=== PATIENT | male | born 1950 | race African-American/Black ===

== ENCOUNTER 2018-07-26 11:54 | Inpatient (IN) | payer MEDICARE ==
[2018-07-26 14:00] LABS: CKMB 5.4 ng/mL (0-6.6)
--- NOTE | 2018-07-26 14:38 | PDOC.FPRHP ---
- History of Present Illness Chief Complaint: KHAN History of Present Illness: 68 yo male here for difficulty breathing starting this morning. Normal state of health prior to waking up this morning. Reports he got out of bed and began walking around the house when he noticed he was more short of breath than usual. Denies CP, N/V, diarrhea, numbness. Assoc weakness which resolved when he arrived at hospital in [place]. He is not aware of any symptoms going on before today. Had a similar episode about a year ago and was diagnosed with bronchitis. No new changes to diet, activity, medications recently. Hx significant for EtOH use, chronic about 16 beers a day. Last beer was this morning, no changes in beer consumption recently. In [place] ER patient was found to be in Afib with RVR and started on cardizem drip @ 5. Was also given ativan for DT withdrawal prophylaxis. No home medications. - Allergies/Adverse Reactions Allergies Allergy/AdvReac Type Severity Reaction Status Date / Time No Known Allergies Allergy Verified 07/26/18 18:08 - Home Medications Medication Instructions Recorded Confirmed Type No Known 07/26/18 07/26/18 History - History PMHx: none PSHx: none FHx: sister: diabetes and possibly HTN; no family history of heart disease reported Social:no smoking; aobut 16 beers a day; smoked crack for 27 years, quit 10 years ago - Review of Systems General: denies: fever/chills, weight/appetite/sleep changes ENT: denies: nasal congestion Respiratory: reports: shortness of breath, exercise intolerance. denies: cough Cardiovascular: denies: chest pain, palpitation Gastrointestinal: denies: nausea, vomiting Skin: denies: rashes Musculoskeletal: denies: tenderness, swelling Neurological: denies: numbness, syncope - Vital signs BP: 128 HR: 101 RR: 18 Tmax: 98.7 Pox: 99% on RA - Physical Exam Constitutional: NAD, awake, alert and oriented HEENT: normocephalic and atraumatic, EOMI Neck: supple, trachea midline Heart: normal S1/S2, no murmurs/rubs/gallops, no edema, other (irregularly irregular) Lungs: CTAB, no respiratory distress, no wheezing Abdomen: soft, bowel sounds present Musculoskeletal: normal structure Neurological: no focal deficit, normal sensation Skin: no rash/lesions Heme/Lymphatic: no unusual bruising or bleeding Psychiatric: normal mood and affect, good judgment and insight FMR H&P: Results - Labs Lab results: CK-MB (CK-2) 5.4 ng/mL (0-6.6) 07/26/18 12:55 Na: 134 K: 4.2 Cl: 100 Bicarb: 20 BUN: 14 Cr: 1.12 Glucose: 99 trop: 0.052 - EKG Interpretation EKG: atrial fibrillation with RVR with PVCs left axis deviation - Radiology Interpretation Chest x-ray Additional comment: mild cardiomegaly FMR H&P: A/P - Problem List (1) Atrial fibrillation with RVR Current Visit: Yes Status: Acute Code(s): I48.91 - UNSPECIFIED ATRIAL FIBRILLATION (2) Alcohol abuse Current Visit: Yes Status: Acute Code(s): F10.10 - ALCOHOL ABUSE, UNCOMPLICATED - Plan #New onset Afib with RVR -underlying cause EtOH abuse vs underlying heart etiology -Mg, Phos pending -TSH wnl -patient rate controlled at this time, 80s to 90s -wean down on cardizem drip as tolerated -hemodynamically stable at this time -consult Dr. Farmer, recs greatly appreciated -continue to trend troponins -repeat EKG now that he is not in RVR #alcohol abuse -ASE protocol #indeterminate troponins -continue to trend Disposition/LOS: Admit to tele, at least 2 midnights VTE prophylaxis: lovenox
[2018-07-26] MEDS ORDERED: Diltiazem 125 MG in Sodium Chloride 0.9% 100 ML IVPB SCH ×2 (14:45→18:00)
[2018-07-26 15:13] LABS: Magnesium 1.7 mg/dL (1.6-2.6); Phosphorus 3.5 mg/dL (2.3-4.7)
[2018-07-26] MEDS ORDERED: Diazepam 5 MG TAB PO PRN (15:39)
[2018-07-26] MEDS ORDERED: Thiamine HCl 200 MG/2 ML VIAL IM SCH (15:45)
[2018-07-26] MEDS ORDERED: Diazepam 5 MG TAB PO SCH (15:45)
[2018-07-26 18:12] VITALS: BMI 23.1
[2018-07-26] MEDS ORDERED: Acetaminophen 325 MG TAB PO PRN (18:25)
[2018-07-26] MEDS ORDERED: Ondansetron ODT 4 MG TAB SL PRN (18:25)
[2018-07-26] MEDS ORDERED: Ondansetron PF 4 MG/2 ML Vial IVP PRN (18:25)
[2018-07-26] MEDS: Sodium Chloride 0.9% 1,000 ML IV SCH (18:33)
--- NOTE | 2018-07-26 20:25 | CON ---
DATE OF CONSULTATION: 07/26/2018 CARDIOLOGY CONSULTATION REASON FOR CONSULTATION: Atrial fibrillation. HISTORY OF PRESENT ILLNESS: Mr. Anand is a pleasant 68-year-old gentleman, who comes to the hospital for not feeling well. He presented to the [facility] and he was found to have atrial fibrillation, so he was started on diltiazem drip and sent over to the [facility] in [place] for further care. He is currently rate controlled; however, he was also given Ativan for possible withdrawal symptoms. He currently denies any chest pain, tightness, or pressure. He drinks about 14 to 16 beers every day. He tells me he does not really have to. He is more tachycardic currently on my evaluation. He has not had any Ativan for several hours now. PAST MEDICAL HISTORY: None. PAST SURGICAL HISTORY: None. FAMILY HISTORY: Sister with diabetes and hypertension. No heart disease. SOCIAL HISTORY: No tobacco. No recent drugs. He used to smoke crack cocaine for about 27 years, but he quit 10 years ago. He drinks about 16 beers a day. REVIEW OF SYSTEMS: A 12-point review of systems was done and was found to be negative other than stated in the history of present illness PHYSICAL EXAMINATION: VITAL SIGNS: Temperature 98.3, pulse 112, respiratory rate 16, saturating 93% on room air, and blood pressure 116/86. GENERAL: Awake, alert, and oriented x3. No distress. HEENT: Normocephalic and atraumatic. NECK: Supple. LUNGS: Clear. CARDIOVASCULAR: S1 and S2. No S3 or S4. No murmurs or rubs. Tachycardic in the 110s. ABDOMEN: Soft, positive bowel sounds. EXTREMITIES: No edema. SKIN: Warm and dry. LABORATORY DATA: Laboratory work was reviewed. CBC is unremarkable. Coags were unremarkable. Chemistries were unremarkable except for an AST of 44, just slightly above normal. Normal potassium, mag, and phos. His troponin is 0.05, 0.05, 0.05. CK-MB was normal x2. TSH is normal. Albumin was 4.2. Toxicology was unremarkable as plasma alcohol was less than assay limit. DIAGNOSTIC DATA: EKG was reviewed. Atrial fibrillation with RVR in the 140s after the drip was started. Atrial fibrillation in the 70s. Currently, his telemetry seems to be either sinus tach or atrial flutter with 2:1 AV block with a heart rate in the 110s. Chest x-ray showed mild cardiomegaly with no evidence of acute cardiopulmonary issues. ASSESSMENT: 1. Atrial fibrillation with rapid ventricular response. 2. Possible atrial flutter. 3. Alcohol abuse. 4. Mildly elevated troponin, concern for left ventricular dysfunction. PLAN: 1. At this time, he is reasonably well rate controlled. We will repeat an EKG to make sure this is not sinus tach from withdrawal versus him organizing his rhythm into atrial flutter with 2:1 block. Depending on what the echocardiogram shows, we will decide on antiarrhythmic and probably BRADLY cardioversion in the next 2 to 3 days as long as he does not go into withdrawals. 2. Further recommendations per results of echocardiogram. Job ID: [id number]
[2018-07-26] MEDS ORDERED: Enoxaparin Sodium 40 MG/0.4 ML SYRINGE SC SCH (21:00)
[2018-07-26] MEDS: Metoprolol Tartrate 25 MG TAB PO SCH (21:07)
[2018-07-27] MEDS: Sodium Chloride 0.9% 1,000 ML IV SCH (01:25)
[2018-07-27] MEDS ORDERED: Diazepam 5 MG TAB PO PRN (04:00)
--- NOTE | 2018-07-27 05:53 | PDOC.FM ---
- Subjective Subjective: Patient was taken off the diltiazem drip @ ~ 20:00 yesterday. Has been rate controlled since. Denies any chest pain, SOB, palpitations, or lightheadedness on exam this AM. - Objective MAR Reviewed: Yes Vital Signs & Weight: Vital Signs (12 hours) Temp Pulse Resp BP BP Pulse Ox 07/27/18 04:00 98.6 F 58 L 18 121/78 97 07/26/18 21:00 56 L 16 132/85 07/26/18 20:00 95/59 L 07/26/18 19:39 97.5 F L 58 L 16 111/67 96 07/26/18 18:08 98.3 F 112 H 16 116/86 93 L Weight Weight 100.244 kg Result Diagrams: 07/27/18 06:06 07/27/18 06:06 Phys Exam - Physical Examination Constitutional: NAD HEENT: moist MMs, sclera anicteric Neck: supple, full ROM Respiratory: no wheezing, no rales, no rhonchi, clear to auscultation bilateral Cardiovascular: RRR, no significant murmur Gastrointestinal: no distention Musculoskeletal: no edema Neurological: non-focal, moves all 4 limbs Psychiatric: normal affect, A&O x 3 Skin: no rash, normal turgor Dx/Plan (1) Alcohol abuse Code(s): F10.10 - ALCOHOL ABUSE, UNCOMPLICATED Status: Acute (2) Atrial fibrillation with RVR Code(s): I48.91 - UNSPECIFIED ATRIAL FIBRILLATION Status: Acute - Plan Plan: New onset Afib with RVR - underlying cause EtOH abuse vs. cardiac etiology - Mg, Phos, and TSH WNLs. CBC pending. - Patient rate controlled in the 50s overnight on PO lopressor. Drip was d/c @ 20:00. In sinus rhythm on exam this AM. - Dr. Farmer on board with plans for a TTE today and likely a BRADLY tomorrow or the next day. alcohol abuse - Patient has been HD stable since admission. - ASE protocol in place but will consider initiating a benzo taper given his significant drinking history. indeterminate troponins - Trops downtrended. Likely 2/2 demand ischemia from arrhythmia. Addendum - Attending - Attending Attestation Date/Time: 07/27/182125 I personally evaluated the patient and discussed the management with Dr. Asher and Dr. Wang I agree with the History, Examination, Assessment and Plan documented above with any addition or exceptions noted below. 68 yo male admitted for new onset A. fib with RVR HD#1 Patient without acute events overnight. Denies CP, SOB, and palpitations. VS, labs, and imaging reviewed. 1. New onset A. fib: Now off CCB drip. Start oral beta norma. Converted back to NSR. Cards consulted. Started on anticoagulation. Awaiting results of ECHO to help determine CHADS score for anticoagulation vs antiplatelet. 2. Alcohol abuse: Discussed risk. Patient willing to stop. Will start benzo taper. Continue ASE protocol. Continue oral supplement replacement. Dispo: Continue tele monitoring. Prudencio
[2018-07-27 06:17] LABS: #Eosinphils 0.1 thou/uL (0.0-0.7); #Lymphocytes 1.3 thou/uL (1.20-3.40); #Monocytes 0.5 thou/uL (0.11-0.59); #Neutrophils 2.2 thou/uL (1.40-6.50); %Basophils 0.4 % (0.0-1.0); %Eosinophils 1.5 % (0.0-10.0); %Lymphocytes 31.6 % (21.0-51.0); %Monocytes 11.4 % (0.0-10.0); %Neutrophils 55.1 % (42.0-75.0); Hemoglobin 13.7 g/dL (14.0-18.0); Mean Corpuscular HGB CONC 33.7 g/dL (32.0-36.0); Mean Corpuscular Hemoglobin 32.1 pg (27.0-31.0); Mean Corpuscular Volume 95.3 fL (78.0-98.0); Mean Platelet Volume 7.7 fL (7.4-10.4); Platelet Count 174 thou/uL (130-400); RBC Distribution Width 12.1 % (11.5-14.5); Red Blood Cell (RBC) Count 4.27 mill/uL (4.70-6.10)
[2018-07-27 06:35] LABS: ALT (SGPT) 27 U/L (8-55); AST (SGOT) 38 U/L (5-34); Albumin 3.4 g/dL (3.4-4.8); Alkaline Phosphatase 64 U/L (40-150); Anion Gap 10 mmol/L (10-20); BUN (Urea Nitrogen) 11 mg/dL (8.4-25.7); Calc. Creatinine Clearance 93 mL/min (70-130); Calcium 8.6 mg/dL (7.8-10.44); Carbon Dioxide 28 mmol/L (23-31); Chloride 103 mmol/L (98-107); Estimated GFR-MDRD 80; Globulin 2.9 g/dL (2.4-3.5); Glucose 106 mg/dL (80-115); Potassium 4.2 mmol/L (3.5-5.1); Protein, Total 6.3 g/dL (5.8-8.1); Sodium 137 mmol/L (136-145)
[2018-07-27] MEDS: Magnesium Oxide 400 MG TAB PO SCH (08:05)
[2018-07-27] MEDS: Enoxaparin Sodium 100 MG/ML SYRINGE SC SCH ×2 (08:05→20:54)
[2018-07-27] MEDS: Folic Acid 1 MG TAB PO SCH (08:05)
[2018-07-27] MEDS: Multivitamin W/ Minerals 1 TAB PO SCH (08:05)
[2018-07-27] MEDS: Metoprolol Tartrate 25 MG TAB PO SCH ×2 (08:05→20:54)
[2018-07-27] MEDS ORDERED: Diazepam 5 MG TAB PO SCH (17:00)
--- NOTE | 2018-07-28 06:17 | PDOC.FM ---
- Subjective Subjective: NAEO. Patient remained in sinus rhythm overnight without any issues. Has no complaints on exam this morning. Denies any chest pain, SOB, or lightheadedness. - Objective MAR Reviewed: Yes Vital Signs & Weight: Vital Signs (12 hours) Temp Pulse Resp BP BP Pulse Ox 07/28/18 04:27 133/77 07/28/18 03:24 97.9 F 56 L 16 133/77 96 07/27/18 20:40 103/62 07/27/18 20:05 95 07/27/18 19:08 98.2 F 74 18 103/62 95 Weight Weight 100.879 kg I&O: 07/26/18 07/27/18 07/28/18 06:59 06:59 06:59 Intake Total 1515 720 Output Total 1700 600 Balance -185 120 Result Diagrams: 07/27/18 06:06 07/27/18 06:06 Radiology Reviewed by me: Yes (Echo --> EF of 55-60% w/ 2/3 diastolic dysfunction) Phys Exam - Physical Examination Constitutional: NAD HEENT: sclera anicteric Neck: supple, full ROM Respiratory: no wheezing, no rales, no rhonchi, clear to auscultation bilateral Cardiovascular: no significant murmur bradycardic with regular rhythm Musculoskeletal: no edema Neurological: non-focal, moves all 4 limbs Psychiatric: normal affect, A&O x 3 Skin: no rash, normal turgor Dx/Plan (1) Alcohol abuse Code(s): F10.10 - ALCOHOL ABUSE, UNCOMPLICATED Status: Acute (2) Atrial fibrillation with RVR Code(s): I48.91 - UNSPECIFIED ATRIAL FIBRILLATION Status: Acute - Plan Plan: New onset Afib with RVR - underlying cause EtOH abuse vs. cardiac etiology - Mg slightly low but Phos and TSH WNLs yesterday. s/p PO Mg replacement. - Patient rate controlled in the 50s overnight on PO lopressor. In sinus rhythm again on exam this AM. - Dr. Farmer on board with plans for an outpatient stress test. Recommended continuing PO lopressor and 81mg ASA QD for rate control and CVA prevention since patient has a ho heavy EtOH use. Instructed patient to schedule outpatient follow-up with him after the holidays. alcohol abuse - Patient has been HD stable since admission. - ASE protocol in place as well as CAROLE valium HS. - Will encourage cessation. Normocytic anemia - Aware, will continue multivitamin, B12, and folic acid. indeterminate troponins - Trops downtrended. Likely 2/2 demand ischemia from arrhythmia. Dispo: D/c home today w/ instructions to follow-up with cardiology for an outpatient stress test. Addendum - Attending - Attending Attestation Date/Time: 07/28/182131 I personally evaluated the patient and discussed the management with Dr. Asher and Dr. Wang I agree with the History, Examination, Assessment and Plan documented above with any addition or exceptions noted below. 68 yo male admitted for new onset A. fib with RVR HD#2 Patient without acute events overnight. Denies CP, SOB, and palpitations. VS, labs, and imaging reviewed. 1. New onset A. fib: Controlled on oral beta norma. Converted back to NSR on CCB drip. Cards following. Appears to have CHADs score of 2. Cards recommended ASA therapy only due to alcohol use and risk for bleed with anticoagulants. Plan for outpatient stress. 2. Alcohol abuse: Discussed risk. Patient willing to stop. Continue benzo taper. Asymptomatic. Continue oral supplement replacement. Dispo: Ok t d/c to home. Follow up with cards next week along with PCP. Encouraged counseling and AA support for alcohol cessation. Prudencio
[2018-07-28] MEDS: Enoxaparin Sodium 100 MG/ML SYRINGE SC SCH (08:31)
[2018-07-28] MEDS: Folic Acid 1 MG TAB PO SCH (08:31)
[2018-07-28] MEDS: Metoprolol Tartrate 25 MG TAB PO SCH (08:32)
[2018-07-28] MEDS: Magnesium Oxide 400 MG TAB PO SCH (08:32)
[2018-07-28] MEDS: Multivitamin W/ Minerals 1 TAB PO SCH (08:33)
--- NOTE | 2018-07-28 08:33 | PDOC.CTH ---
Cardiology Progress Note - Subjective He is back in sinus rhythm feeling well. He denies any chest pain, tightness, pressure, SOB. - Objective Vital Signs Temp Pulse Resp BP BP Pulse Ox 07/28/18 07:25 98.1 F 63 18 133/86 97 07/28/18 04:27 133/77 07/28/18 03:24 97.9 F 56 L 16 133/77 96 07/27/18 20:40 103/62 Weight 222 lb 6.4 oz 07/27/18 07/28/18 07/29/18 06:59 06:59 06:59 Intake Total 1515 720 Output Total 1700 600 Balance -185 120 - Physical Examination General/Neuro: alert & oriented x3, NAD Neck: no JVD present Lungs: CTA, unlabored respirations Heart: RRR Abdomen: NT/ND Extremities: other: (no edema) - Telemetry Telemetry Rhythm: NSR - Labs Result Diagrams: 07/27/18 06:06 07/27/18 06:06 Troponin/CKMB CK-MB (CK-2) 5.4 ng/mL (0-6.6) 07/26/18 12:55 Troponin I 0.050 ng/mL (< 0.028) H 07/26/18 16:08 - Assessment/Plan 1. Paroxysmal afib 2. Alcohol abuse PLAN: - May discharge home - Will plan on risk stratification with a stress test as an outpatient. - He is 6'10" so if intervention planned he will likely need special longer catheters to be available. - Aspirin alone for stroke prophylaxis due to alcohol use - Counselled on cessation if he follows up and has not used alcohol may consider full anticoagulation. - May discharge home today from cardiac perspective. - Follow up in 1 month in the office. - Will sing off.
[2018-07-28 11:16] VITALS: BP 109/68; TEMP 98.4
--- NOTE | 2018-07-30 17:07 | DIS ---
DATE OF ADMISSION: 07/26/2018 DATE OF DISCHARGE: 07/28/2018 RESIDENT: Agata Asher MD ADMITTING ATTENDING: Rubén Mo MD DISCHARGE ATTENDING: Venessa Haji MD CONSULTS: Cardiology, Dr. David Farmer. PROCEDURES: Transthoracic echocardiogram on 07/27/2018, significant for an ejection fraction estimated at 55% to 60% with grade 2/3 diastolic dysfunction and apical akinesis as well as mildly dilated left atrium, and mild mitral and tricuspid regurgitation. PRIMARY DIAGNOSES: 1. Paroxysmal atrial fibrillation with rapid ventricular rate. 2. Normocytic anemia. 3. Elevated troponin secondary to atrial fibrillation with rapid ventricular rate. 4. Hypomagnesemia. SECONDARY DIAGNOSIS: Chronic alcohol abuse. DISCHARGE MEDICATIONS: 1. Aspirin 81 mg daily. 2. Folic acid 1 mg p.o. daily. 3. Lopressor 12.5 mg p.o. b.i.d. 4. Multivitamin with minerals one tablet p.o. daily. 5. Atorvastatin 20 mg p.o. daily. 6. Lisinopril 5 mg p.o. daily. 7. Valium 2 mg p.o. daily p.r.n. for 4 days. DISCONTINUED MEDICATIONS: None. HOSPITAL COURSE: The patient is a 68-year-old gentleman with a past medical history significant for chronic alcohol abuse, who presented to the emergency department with a chief complaint of difficulty breathing that started the morning of presentation. Upon presentation to the [facility] he was found to be in atrial fibrillation with RVR. At the [facility], the patient was started on a Cardizem drip at 5 an hour and was given IV lovenox for DVT prophylaxis. After being started on the Cardizem drip, the patient was transferred to [facility] for close observation on telemetry. After the patient admitted to the Telemetry floor, Cardiology, Dr. David Farmer was consulted to come and evaluate the patient. At the time of Dr. Farmer's evaluation, the patient was still in atrial fibrillation with RVR and his heart rate was noted to be elevated at 112. Dr. Farmer therefore recommended that the patient be titrated off the Cardizem drip as tolerated and that he undergo a transthoracic echo and possibly a BRADLY for cardioversion in the next 2 to 3 days. Fortunately, by 7 p.m. on the day of admission, the patient converted to normal sinus rhythm and was taken off the Cardizem drip and started on p.o. Lopressor 25 mg b.i.d. The following morning, the patient underwent a transthoracic echocardiogram, which was significant for the findings described above. He was continued on p.o. lopressor at a reduced dose of 12.5 mg p.o. b.i.d. as he actually became bradycardic with a heart rate down into the 50s overnight. On the morning of discharge, Dr. Farmer came and evaluated the patient and recommended proceeding with a cardiac stress test on an outpatient basis due to the patient's tall stature. Dr. Farmer said he would need special catheters in order to complete a cardiac cath on the patient and therefore recommended follow-up testing on an outpatient basis. The patient agreed to this and was therefore cleared to be discharge home on lopressor and aspirin for his paroxysmal atrial fibrillation per the recs of Dr. Farmer due to his h/o significant QD EtOH use. Regarding the patient's elevated troponin, his initial troponin on presentation was slightly elevated 0.050; however, this downtrended from 0.050 and was therefore likely related to his rapid ventricular response following atrial fibrillation. Regarding the patient's hypomagnesemia, the patient's initial magnesium on admission was 1.7, which was replaced with 2 g of IV mag and the morning of discharge, it had risen to within normal limits at 2.1. DISPOSITION: Stable. DISCHARGE INSTRUCTIONS: 1. Location: Home. 2. Diet: Heart-healthy diet. 3. Activity: As tolerated. No restrictions. 4. Followup: The patient was instructed to follow up with [facility] in [place], as this is close to the patient's home, within 2 weeks of discharge. The patient was also instructed to follow up with Dr. Farmer on an outpatient basis within 2 weeks to complete the workup for his new onset atrial fibrillation with a cardiac stress test and possible cardiac catheterization. Job ID: [id number] [id number]
== END 2018-07-28 14:01 | disposition home or self-care (01) | DRG 309 ==
LOC: ERS 11:54 → ERHOLD 13:58 → 2NO 17:51
PROVIDERS: ADMIT Family Medicine; ATTEND Family Medicine
DX: I48.0 Paroxysmal atrial fibrillation (principal); I24.8 Other forms of acute ischemic heart disease; F10.10 Alcohol abuse, uncomplicated; D64.9 Anemia, unspecified; E83.42 Hypomagnesemia
CPT/HCPCS: 36415; 80053; 80061; 82274; 82553; 83735; 84100; 84443; 85025; 93005; 93010; 93306; 96365; 96366; J1650; J3411; J3475; J7050

== ENCOUNTER 2019-04-03 17:17 | Inpatient (IN) | payer MEDICARE, SELFPAY ==
[2019-04-03] MEDS ORDERED: NS 0.9% w/ 40 MEQ KCL 1,000 ML IV SCH (18:00)
[2019-04-03] MEDS ORDERED: Ketorolac Tromethamine 30 MG/ML VIAL ONE (18:07)
[2019-04-03 19:23] LABS: Troponin I 0.024 ng/mL (< 0.028)
[2019-04-03 20:20] VITALS: BMI 23.5
[2019-04-03 21:15] LABS: Troponin I 0.022 ng/mL (< 0.028)
[2019-04-04 00:18] LABS: Troponin I 0.027 ng/mL (< 0.028)
[2019-04-04] MEDS ORDERED: Acetaminophen 325 MG TAB PO PRN (00:19)
[2019-04-04] MEDS ORDERED: Senokot S 8.6-50 MG TAB PO PRN (00:19)
[2019-04-04] MEDS ORDERED: Ondansetron PF 4 MG/2 ML Vial IVP PRN (00:19)
[2019-04-04] MEDS ORDERED: Ondansetron ODT 4 MG TAB PO PRN (00:19)
[2019-04-04] MEDS ORDERED: Guaifenesin DM 100-10/5 ML UDCUP PO PRN (00:19)
[2019-04-04] MEDS ORDERED: Calcium Carbonate 500 MG ChewTAB PO PRN (00:19)
[2019-04-04] MEDS ORDERED: HYDROcodone/Acetaminophen 5/325 mg Tablet PO PRN (00:19)
[2019-04-04] MEDS ORDERED: Zolpidem Tartrate 5 MG TAB PO PRN (00:19)
[2019-04-04] MEDS ORDERED: Bisacodyl 10 MG SUPP PR PRN (00:19)
[2019-04-04] MEDS ORDERED: Loperamide HCl 2 MG CAP PO PRN (00:19)
--- NOTE | 2019-04-04 04:00 | HP ---
PRIMARY CARE PHYSICIAN: [facility]. REASON FOR ADMISSION: Transferred from [facility] for atrial fibrillation with RVR. HISTORY OF PRESENT ILLNESS: This is a 69-year-old male, who has history of atrial fibrillation, who initially went to [facility] with complaint of palpitation, dizziness, generalized weakness and mild shortness of breath. The patient was found with atrial fibrillation with rapid ventricular response. The patient had similar problem in July 2018. At that time, he was admitted in our hospital. An echocardiography and Cardiology evaluation were done. At that time, the patient's atrial fibrillation was related with his history of alcohol abuse. Subsequently, he stopped drinking alcohol and then he restarted drinking alcohol about 2 days ago. The patient also relates at this time atrial fibrillation with his alcohol use. Initial heart rate was in 150s. He was requiring Cardizem drip and subsequently he was transferred to our hospital. The patient also reports that he also ran out his medication for last 4-5 days. The patient was also not able to get a followup appointment with primary care physician. He did not have any syncope. He denies any orthopnea, PND, or leg swelling. He denies any fever or chills. He denies any UTI symptoms. He denies any chest pain. He denies any melena or hematochezia. He denies any previous history of diabetes or stroke. REVIEW OF SYSTEMS: CONSTITUTIONAL: Negative for weight loss or gain, ability to conduct usual activities. SKIN: Negative for rash, itching. EYES: Negative for double vision, pain. ENT/MOUTH: Negative for nose bleeding, neck stiffness, pain, tenderness. CARDIOVASCULAR: Negative for palpitations, dyspnea on exertion, orthopnea. RESPIRATORY: Negative for shortness of breath, wheezing, cough, hemoptysis, fever or night sweats. GASTROINTESTINAL: Negative for poor appetite, abdominal pain, heartburn, nausea, vomiting, constipation, or diarrhea. GENITOURINARY: Negative for urgency, frequency, dysuria, nocturia. MUSCULOSKELETAL: Negative for pain, swelling. NEUROLOGIC/PSYCHIATRIC: Negative for anxiety, depression. ALLERGY/IMMUNOLOGIC: Negative for skin rash, bleeding tendency. Please see my HPI for pertinent positives and negatives. All other review of systems reviewed and negative except as mentioned in HPI. PAST MEDICAL HISTORY: Paroxysmal atrial fibrillation, hypertension, dyslipidemia, and history of alcohol abuse. PAST SURGICAL HISTORY: Reviewed and negative. PAST PSYCHIATRIC HISTORY: Reviewed and negative. SOCIAL HISTORY: The patient is former drug abuser. He drinks alcohol socially. He denies any smoking history. FAMILY HISTORY: No strong family history of premature coronary artery disease, stroke, or cancer. ALLERGIES: NO KNOWN DRUG ALLERGY. CURRENT HOME MEDICATIONS: 1. Aspirin 81 mg daily. 2. Lipitor 20 mg daily. 3. Lisinopril 5 mg p.o. daily. 4. Metoprolol 12.5 mg twice daily. 5. Multivitamin 1 tablet daily. 6. Flexeril 5 mg t.i.d. p.r.n. EMERGENCY ROOM COURSE: The patient was treated with IV fluid, Lovenox 1 mg/kg, Cardizem drip, potassium chloride 20 mEq IV, potassium chloride 40 mEq p.o., aspirin 243 mg and he required Cardizem bolus x2 10 mg. PHYSICAL EXAMINATION: VITAL SIGNS: On arrival to [facility], blood pressure 136/116, pulse 158, irregular, respiratory rate 17, saturation 100% on room air, weight 101.6 kg. GENERAL: When I saw, at that time, he was converted to sinus rhythm. He is alert and oriented, asymptomatic. HEENT: Head; normocephalic, atraumatic. Eyes; pupils round and reactive to light. Extraocular muscle intact. ENT; oropharynx within normal limits. Moist mucous membranes. No oral lesion. No pharyngeal erythema. No exudate. NECK: Supple. No JVD. No thyromegaly. No carotid bruit. No jugular venous distention. LUNGS: Clear to auscultation without any rhonchi or rales. CARDIAC: Currently S1, S2 regular. No murmur. No gallop. No rub. ABDOMEN: Soft. Bowel sounds present. Nontender. Nondistended. No organomegaly. No mass. No suprapubic tenderness. BACK: Examination unremarkable. No CVA tenderness. EXTREMITIES: Upper extremities; passive movement of all joints are normal. Lower extremities; no edema. No calf tenderness. Good distal pulsation. SKIN: No skin rash. HEMATOLOGICAL: No lymphadenopathy. NEUROLOGIC: Nonfocal examination. SIGNIFICANT LABORATORY DATA: EKG done at [facility] was consistent with atrial fibrillation with rapid ventricular response, multifocal premature ventricular complexes, left axis deviation. The second EKG was also consistent with atrial fibrillation with controlled ventricular response with multiple PVCs. Echocardiography in July 2018 showed EF 55% to 60%, diastolic dysfunction. Chest x-ray based on my review, no acute cardiopulmonary process. CBC; WBC 6.6, hemoglobin 13.3, platelet count 214. INR 1.1. BMP; sodium 142, potassium 2.9, chloride 99, carbon dioxide 28, BUN 11, creatinine 1.63, glucose 118. Lactic acid 1.4, magnesium 2.1, calcium 10.0. LFTs; AST 31, ALT 222, alkaline phosphatase 98, albumin 4.3. CK 370, CK-MB 5.7, troponin I 0.033, then 0.024 and 0.022. TSH 1.99. Urinalysis unremarkable. Urine drug screen negative. ASSESSMENT AND PLAN: 1. Paroxysmal atrial fibrillation with rapid ventricular response. 2. Hypertension. 3. Dyslipidemia. 4. Alcohol abuse. 5. Hypokalemia. 6. Chronic kidney disease, stage 3. 7. Mild rhabdomyolysis. 8. Type 2 myocardial infarction. Plan, Cardizem drip will be interrupted as patient has converted to normal sinus rhythm. The patient already had full workup done in the recent past including echocardiography. No need of repeating echocardiography. He has diastolic dysfunction. Currently, the patient is converted to sinus rhythm and this episode is related with his alcohol use as well as medication noncompliance. Based on [id number] score, he has only 1 point. He does not have any congestive heart failure history. The patient is also noncompliant. He will benefit from aspirin 325 mg p.o. daily. We will resume the patient's home medication. We will monitor while in the hospital for any recurrent episodes of atrial fibrillation. We will continue Lovenox 1 mg/kg subcutaneous twice daily. Long-term anticoagulation, we will defer to Cardiology if needed. 9. Dyslipidemia, continue Lipitor 20 mg p.o. daily. 10. Hypertension. Continue lisinopril 5 mg p.o. daily, metoprolol 12.5 mg p.o. b.i.d. 11. Alcohol abuse. Continue multivitamin one tablet p.o. daily. Counseling given. 12. Deep venous thrombosis prophylaxis, the patient is already on full dose of Lovenox therapy. 13. Gastrointestinal prophylaxis, Pepcid 20 mg p.o. b.i.d. CODE STATUS: The patient is full code. DISPOSITION PLAN: Based on clinical course, we are expecting the patient's stay in hospital more than 2 midnights. Plan of care discussed with the patient in detail. Job ID: [id number]
[2019-04-04 05:10] LABS: #Basophils 0.1 thou/uL (0.0-0.2); #Eosinphils 0.1 thou/uL (0.0-0.7); #Lymphocytes 2.2 thou/uL (1.20-3.40); #Monocytes 0.6 thou/uL (0.11-0.59); #Neutrophils 2.7 thou/uL (1.40-6.50); %Eosinophils 1.6 % (0.0-10.0); %Lymphocytes 38.2 % (21.0-51.0); %Monocytes 10.3 % (0.0-10.0); %Neutrophils 48.8 % (42.0-75.0); Mean Corpuscular HGB CONC 34.7 g/dL (32.0-36.0); Mean Corpuscular Hemoglobin 31.4 pg (27.0-31.0); Mean Corpuscular Volume 90.5 fL (78.0-98.0); Mean Platelet Volume 8.3 fL (7.4-10.4); Platelet Count 170 thou/uL (130-400); RBC Distribution Width 12.6 % (11.5-14.5); Red Blood Cell (RBC) Count 3.49 mill/uL (4.70-6.10); White Blood Cell (WBC) Count 5.6 thou/uL (4.8-10.8)
[2019-04-04 05:29] LABS: ALT (SGPT) 15 U/L (8-55); AST (SGOT) 20 U/L (5-34); Albumin 3.4 g/dL (3.4-4.8); Alkaline Phosphatase 73 U/L (40-150); Anion Gap 7 mmol/L (10-20); BUN (Urea Nitrogen) 9 mg/dL (8.4-25.7); Bilirubin, Total 0.6 mg/dL (0.2-1.2); Calc. Creatinine Clearance 101 mL/min (70-130); Calcium 8.4 mg/dL (7.8-10.44); Carbon Dioxide 29 mmol/L (23-31); Chloride 107 mmol/L (98-107); Estimated GFR-MDRD 88; Globulin 2.5 g/dL (2.4-3.5); Glucose 109 mg/dL (80-115); Potassium 3.3 mmol/L (3.5-5.1); Protein, Total 5.9 g/dL (5.8-8.1); Sodium 140 mmol/L (136-145)
[2019-04-04] MEDS ORDERED: Metoprolol Tartrate 25 MG TAB PO SCH (09:00)
[2019-04-04] MEDS ORDERED: Multivitamin W/ Minerals 1 TAB PO SCH (09:00)
[2019-04-04] MEDS ORDERED: Aspirin 81 mg Enteric Coated Tablet PO SCH (09:00)
[2019-04-04] MEDS ORDERED: Heparin 5,000 UNITS/ML VIAL SC SCH (09:00)
[2019-04-04] MEDS ORDERED: Famotidine 20 MG TAB PO SCH (09:00)
[2019-04-04] MEDS ORDERED: Atorvastatin Calcium 20 MG TAB PO SCH (09:00)
[2019-04-04] MEDS ORDERED: Enoxaparin Sodium 100 MG/ML SYRINGE SC SCH (09:00)
[2019-04-04] MEDS ORDERED: Aspirin 325 MG TAB PO SCH (09:00)
[2019-04-04] MEDS ORDERED: Lisinopril 5 MG TAB PO SCH (09:00)
[2019-04-04] MEDS ORDERED: Potassium Chloride 20 MEQ TAB PO SCH (15:30)
[2019-04-04 15:46] VITALS: BP 151/85; TEMP 98
--- NOTE | 2019-04-04 16:13 | CON ---
DATE OF CONSULTATION: 04/04/2019 REASON FOR CONSULTATION: Atrial fibrillation with RVR. HISTORY OF PRESENT ILLNESS: Mr. Anand is a pleasant 69-year-old -[place] gentleman, whom I have seen in the past, who comes to the hospital for palpitations. He was seen in July for similar situation. He was in atrial fibrillation with RVR. At that time, he was drinking about 12 to 14 beers every day. He was advised to stop drinking. His CHADS-VASc score was 2, so he needed blood thinning, but we decided against it because of his alcohol use and his noncompliance. He was discharged home on a beta norma and an WINIFRED inhibitor and an aspirin alone. He states that since then, he has not drank at all, and it was not up to last week, where he had a total of 3 beers, he says, and he also started to run out of his medications, and because he had not followed up with anyone since then and his pharmacist told him not to get a refill, he needed to get a physician to sign off on it and he had no primary care physician, they had not come and see us. He eventually went back into atrial fibrillation, started feeling palpitations, went to the ER, was found to be in atrial fibrillation with RVR, and eventually was transferred here. He was placed on a Cardizem drip and he converted to sinus rhythm overnight. Currently, he feels back to normal. Denies any chest pain, tightness, or pressure. No shortness of breath. PAST MEDICAL HISTORY: 1. Paroxysmal atrial fibrillation. 2. Alcohol abuse. He states he quit for the last 6 months. He has had a total of 3 beers since we last saw him. 3. Hypertension. 4. Hyperlipidemia. PAST SURGICAL HISTORY: None. SOCIAL HISTORY: Former drug user. Social alcohol use, heavy before 14 beers a day. He states he has only had 3 beers in the last 6 months. No tobacco use. FAMILY HISTORY: Noncontributory. OUTPATIENT MEDICATIONS: 1. Aspirin 81 a day. 2. Lipitor 10 mg at bedtime. 3. Lisinopril 5 mg a day. 4. Metoprolol 12.5 mg b.i.d. 5. Multivitamin daily. 6. Flexeril p.r.n. ALLERGIES: NO KNOWN DRUG ALLERGIES. REVIEW OF SYSTEMS: A 12-point review of systems was done and was all negative unless stated in the history of present illness. PHYSICAL EXAMINATION: VITAL SIGNS: Temperature 97.8, pulse 48, respiratory rate 15, saturating 100% on room air, and blood pressure 167/85. GENERAL: Awake, alert, oriented x3. No distress. HEENT: Normocephalic and atraumatic. NECK: Supple. LUNGS: Clear. CARDIOVASCULAR: S1 and S2. No S3 or S4. Heart rate in the 40s. ABDOMEN: Soft. Positive bowel sounds. EXTREMITIES: No edema. SKIN: Warm and dry. LABORATORY DATA: Laboratory work was reviewed. CBC was reviewed. Chemistries were reviewed. Potassium was 3.3, actually 2.9 on admission, up to 3.3. Troponin was negative x3. ASSESSMENT AND PLAN: 1. Paroxysmal atrial fibrillation with rapid ventricular response, currently in sinus rhythm. 2. Hypokalemia. 3. Hypertension. 4. Alcohol use. 5. Noncompliance. PLAN: 1. His CHADS-VASc score is 2 for his age and hypertension. He is not a good candidate for full anticoagulation given his noncompliance. We will plan on restarting his home medications. We will plan on seeing him back in the office in 1 to 2 months. If he shows up, we will consider blood thinners at that time for stroke prophylaxis. If he does not show up with me, he is still not interested in compliance at this time. I have encouraged him to continue to follow up and I explained to him the risk of not being on a blood thinner increases the risk of him having a stroke, which could be severely disabling. He understands, verbalized understanding of this. He will try to follow up with us. Once he does, we will start full anticoagulation. Otherwise, aspirin alone for stroke prophylaxis for now. 2. If he continues to drink, he would not be a candidate for full anticoagulation either, so this has been voiced to him, and he verbalized understanding of this as well. 3. Would discontinue metoprolol, increase his lisinopril to 10 mg a day to control his blood pressure better. 4. May be discharged home at any point from the cardiac perspective. Thank you for letting us to participate in the care of your patient. We will sign off. Please call with any questions. Job ID: [id number]
[2019-04-05] MEDS ORDERED: Lisinopril 5 MG TAB PO SCH (09:00)
--- NOTE | 2019-04-05 09:52 | DIS ---
DATE OF ADMISSION: 04/03/2019 DATE OF DISCHARGE: 04/04/2019 DISCHARGE DISPOSITION: Home. FOLLOWUP: 1. Follow up at [facility] in [place]. 2. Follow up with Cardiology, Dr. Farmer in 2 weeks. The patient was seen and examined on the day of discharge. Denies any new complaints. No chest pain, shortness of breath, or palpitations reported. DISCHARGE MEDICATIONS: 1. Lisinopril 10 mg daily. 2. Metoprolol 12.5 b.i.d. 3. Multivitamin 1 tablet daily. 4. Lipitor 20 mg daily. 5. Aspirin 81 mg daily. INPATIENT REHABILITATION CONSTRUCTION SPECIALIST: Cardiology, Dr. Farmer. BRIEF HOSPITAL COURSE: The patient is a 69-year-old male with paroxysmal atrial fibrillation, presented to the hospital with palpitations. His workup was consistent with atrial fibrillation with rapid ventricular response. The patient spontaneously converted to sinus rhythm after IV Cardizem. He was monitored on telemetry. The patient was evaluated by Cardiology, Dr. Farmer. Dr. Farmer recommended increasing lisinopril. Due to sinus bradycardia, metoprolol dose was left unchanged. He was encouraged to follow up as outpatient. Due to medication noncompliance, anticoagulation was not started by Cardiology. He will continue aspirin for stroke prophylaxis for now. Dr. Farmer will consider anticoagulation if he shows compliance with followup. He has been cleared by Cardiology for discharge. FINAL DIAGNOSIS: 1. Paroxysmal atrial fibrillation with rapid ventricular response, currently in sinus rhythm. 2. Hypokalemia, replaced. 3. Hypertension. 4. History of alcoholism. 5. Noncompliance. 6. Mild chronic anemia. PLAN: Plan of care was discussed with the patient in detail, he stated understanding. Job ID: [id number]
--- NOTE | 2019-04-06 20:05 | PQF ---
FRANCISCO SHEFFIELD ALEM KISHA DOUGHERTY MD [id number] CLINICAL DOCUMENTATION CLARIFICATION FORM: POST DISCHARGE Addendum to original discharge summary date: ____ Late entry note date: __ DATE: 04/04/19 ATTN: Kisha Palafox Please exercise your independent, professional judgment in responding to the clarification form. Clinical indicators are provided on the bottom of this form for your review Can you please further specify if Type 2 myocardial is ruled in or ruled out? Type 2 myocardial [ ] Ruled in diagnosis [ ] Continue to treat [ ] Resolved [ ] Ruled out diagnosis [ ] Cannot rule out diagnosis [ ] Other diagnosis please specity [ ] Unable to determine In addition, please specify: Present on Admission (POA): [ ] Yes [ ] No [ ] Unable to determine For continuity of documentation, please document condition throughout progress notes and discharge summary. Thank You. CLINICAL INDICATORS H and P 04/03 pg.1- "Complaint of palpitation, dizziness, generalized weakness and mild shortness of breath" H and P 04/03 pg.3- "Troponin I 0.033, then 0.024 and 0.022" H and P 04/03 pg.3- "Type 2 Myocardial infection. Plan Cardizem drip will interrupted as patient has converted to normal sinus RISK FACTORS Paroxysmal atrial fibrillation-H and P 04/03 pg.3 Dyslipidemia-H and P 04/03 pg.3 Hypertension- H and P 04/03 pg.3 Medication noncompliance- H and P 04/03 pg.4 TREATMENTS Cardiology Consult- Dr. Farmer 04/04 IV Fluids- OCT 13 Diltiazem HCl (Cardizem 125mg IV- OCT 13 To support diagnosis (This form is maintained as a part of the permanent medical record) 2014 [employer]. All Rights Reserved Larry [email or web address] [not provided] [email or web address]
== END 2019-04-04 19:00 | disposition home or self-care (01) | DRG 309 ==
LOC: ERS 17:17 → 2NO 20:04
PROVIDERS: ADMIT Internal Medicine; ATTEND Internal Medicine
DX: I48.0 Paroxysmal atrial fibrillation (principal); M62.82 Rhabdomyolysis; E87.6 Hypokalemia; N18.3 Chronic kidney disease, stage 3 (moderate); I12.9 Hypertensive chronic kidney disease with stage 1 through stage 4 chronic kidney disease, or unspecified chronic kidney disease; D63.1 Anemia in chronic kidney disease; F10.21 Alcohol dependence, in remission; E78.5 Hyperlipidemia, unspecified; Z79.82 Long term (current) use of aspirin; Z79.899 Other long term (current) drug therapy; Z91.14 Patient's other noncompliance with medication regimen
CPT/HCPCS: 36415; 80053; 83735; 85025; 93005; 96365; 96366; J1650; J1885; J3480; J3490

== ENCOUNTER 2023-09-06 17:29 | Inpatient (IN) | payer MEDICARE, SELFPAY ==
[2023-09-06] MEDS ORDERED: Ondansetron PF 4 MG/2 ML Vial IVP PRN (18:23)
[2023-09-06] MEDS ORDERED: Ondansetron ODT 4 MG TAB PO PRN ×2 (18:23→18:30)
[2023-09-06] MEDS ORDERED: Acetaminophen 650 MG Suppository PR PRN (18:23)
[2023-09-06] MEDS ORDERED: Metoprolol Tartrate 5 MG (5 mL) VIAL IVP SCH (18:30)
[2023-09-06] MEDS ORDERED: Lorazepam 2 MG/ML VIAL IM PRN (18:30)
[2023-09-06] MEDS ORDERED: Electrolyte Replacement Protocol 1 EACH FS SCH (18:30)
[2023-09-06] MEDS ORDERED: dilTIAZem 125 MG in Sodium Chloride 0.9% 100 ML IVPB SCH (18:30)
[2023-09-06] MEDS ORDERED: Lorazepam 1 MG TAB PO PRN (18:30)
[2023-09-06 18:53] LABS: Hemoglobin 14.3 g/dL (14.0-18.0); Platelet Count 197 10x3/uL (130-400)
[2023-09-06 19:21] LABS: Magnesium 1.7 mg/dL (1.6-2.6); Phosphorus 3.3 mg/dL (2.3-4.7)
[2023-09-06 19:24] LABS: Troponin I 0.022 ng/mL (< 0.028)
[2023-09-06] MEDS ORDERED: Magnesium 2 GM/50 ML(in water) 2 GM in Premix 1 BAG IVPB SCH (19:45)
[2023-09-06] MEDS ORDERED: Metoprolol Tartrate 25 MG TAB PO SCH (21:00)
[2023-09-06] MEDS ORDERED: Heparin 25,000 units/D5W 500 ML IVPB SCH (21:30)
[2023-09-06] MEDS ORDERED: Heparin 10,000 UNITS/ 10 ML VIAL SLOW IVP SCH (21:30)
[2023-09-06] MEDS: Thiamine HCl 200 MG/2 ML VIAL SLOW IVP SCH (22:10)
[2023-09-06] MEDS: Folic Acid 1 MG TAB PO SCH (22:11)
[2023-09-06] MEDS: Sodium Chloride 0.9% 1,000 ML IV SCH (22:11)
[2023-09-06] MEDS: Multivit, Therapeutic 1 TAB PO SCH (22:11)
[2023-09-06 22:13] VITALS: BMI 22.0
[2023-09-06] MEDS ORDERED: Enoxaparin 100 MG (1 mL) SYRINGE SC SCH (22:15)
[2023-09-06 22:23] LABS: Troponin I 0.028 ng/mL (< 0.028)
[2023-09-07 01:01] LABS: Amphetamine Not Detected (NotDetected); Barbiturates Screen Not Detected (NotDetected); Benzodiazepine Screen Not Detected (NotDetected); Cocaine Metabolite Screen Not Detected (NotDetected); Methadone Not Detected (NotDetected); Methamphetamine Not Detected (NotDetected); Opiate Screen Not Detected (NotDetected); Oxycodone Screen Not Detected (NotDetected); Phencyclidine (PCP) Not Detected (NotDetected); THC/Cannabinoid Screen Not Detected (NotDetected); Tricyclic Screen Not Detected (NotDetected)
[2023-09-07 03:32] LABS: #Monocytes 0.7 thou/uL (0.11-0.59); %Basophils 0.8 % (0.0-1.0); %Eosinophils 0.8 % (0.0-10.0); %Lymphocytes 28.3 % (21.0-51.0); %Monocytes 12.5 % (0.0-10.0); %Neutrophils 57.4 % (42.0-75.0); Hematocrit 36.9 % (42.0-52.0); Hemoglobin 13.2 g/dL (14.0-18.0); Mean Corpuscular HGB CONC 35.8 g/dL (32.0-36.0); Mean Corpuscular Hemoglobin 31.2 pg (27.0-31.0); Mean Corpuscular Volume 87.2 fl (78.0-98.0); Mean Platelet Volume 9.8 fL (7.4-10.4); Platelet Count 169 10x3/uL (130-400); RBC Distribution Width 13.4 % (11.5-14.5); Red Blood Cell (RBC) Count 4.23 mill/uL (4.70-6.10); White Blood Cell (WBC) Count 5.3 10x3/uL (4.8-10.8)
[2023-09-07 03:46] LABS: INR-International Normal Ratio 1.2; Prothrombin Time 14.8 sec (12.0-14.7)
[2023-09-07 03:56] LABS: Phosphorus 3.7 mg/dL (2.3-4.7)
[2023-09-07 03:58] LABS: ALT (SGPT) 15 U/L (8-55); AST (SGOT) 17 U/L (5-34); Albumin 3.5 g/dL (3.4-4.8); Alkaline Phosphatase 81 U/L (40-110); Anion Gap 13 mmol/L (10-20); BUN (Urea Nitrogen) 13 mg/dL (8.4-25.7); Bilirubin, Total 0.8 mg/dL (0.2-1.2); Calc. Creatinine Clearance 92 mL/min (70-130); Calcium 8.7 mg/dL (7.8-10.44); Carbon Dioxide 22 mmol/L (23-31); Cardiac Risk 1.9 (Less than 4.5); Chloride 107 mmol/L (98-107); Cholesterol 152 mg/dl (< 200 Desired); Estimated GFR 81; Globulin 3.1 g/dL (2.4-3.5); Glucose 109 mg/dL (83-110); HDL Cholesterol 79 mg/dL (>60 Neg Risk); LDL Cholesterol, Calculated 63 mg/dL; Magnesium 2.1 mg/dL (1.6-2.6); Potassium 3.8 mmol/L (3.5-5.1); Protein, Total 6.6 g/dL (5.8-8.1); Sodium 138 mmol/L (136-145); Triglycerides 49 mg/dL (Less than 150)
[2023-09-07] MEDS: Sodium Chloride 0.9% 1,000 ML IV SCH (07:43)
[2023-09-07] MEDS: Metoprolol Tartrate 25 MG TAB PO SCH ×2 (07:47→20:28)
[2023-09-07] MEDS: Acetaminophen 325 MG TAB PO PRN ×2 (07:47→20:29)
[2023-09-07] MEDS: Aspirin 81 mg Enteric Coated Tablet PO SCH (07:48)
[2023-09-07] MEDS: Thiamine HCl 200 MG/2 ML VIAL SLOW IVP SCH (18:28)
[2023-09-07] MEDS ORDERED: Lorazepam 1 MG TAB PO PRN (18:30)
[2023-09-07] MEDS: Folic Acid 1 MG TAB PO SCH (20:28)
[2023-09-07] MEDS: Apixaban 5 MG TAB PO SCH (20:29)
[2023-09-07] MEDS: Multivit, Therapeutic 1 TAB PO SCH (20:29)
[2023-09-08] MEDS: Acetaminophen 325 MG TAB PO PRN (02:39)
[2023-09-08] MEDS: Sodium Chloride 0.9% 1,000 ML IV SCH (03:48)
[2023-09-08 05:35] LABS: Anion Gap 11 mmol/L (10-20); BUN (Urea Nitrogen) 12 mg/dL (8.4-25.7); Calc. Creatinine Clearance 77 mL/min (70-130); Calcium 8.8 mg/dL (7.8-10.44); Carbon Dioxide 26 mmol/L (23-31); Chloride 106 mmol/L (98-107); Estimated GFR 65; Glucose 99 mg/dL (83-110); Potassium 3.8 mmol/L (3.5-5.1); Sodium 139 mmol/L (136-145)
[2023-09-08] MEDS: Metoprolol Tartrate 25 MG TAB PO SCH (08:41)
[2023-09-08] MEDS: Apixaban 5 MG TAB PO SCH (08:41)
[2023-09-08] MEDS: Aspirin 81 mg Enteric Coated Tablet PO SCH (08:42)
[2023-09-08 11:53] VITALS: BP 164/96; TEMP 97.4
[2023-09-08] MEDS ORDERED: Lorazepam 1 MG TAB PO PRN (18:30)
[2023-09-09] MEDS ORDERED: Thiamine 100 MG TAB PO SCH (09:00)
[2023-09-09] MEDS ORDERED: Lorazepam 0.5 MG TAB PO PRN (18:30)
== END 2023-09-08 15:30 | disposition home or self-care (01) | DRG 309 ==
LOC: ERS 17:29 → SUATTDRO 17:29 → IMCU/EMU 18:29 → 2NO 09-07 17:56
PROVIDERS: ADMIT Family Medicine; ATTEND Family Medicine
DX: I48.0 Paroxysmal atrial fibrillation (principal); I24.89 Other forms of acute ischemic heart disease; E78.00 Pure hypercholesterolemia, unspecified; I10 Essential (primary) hypertension; Z79.82 Long term (current) use of aspirin; Z79.899 Other long term (current) drug therapy; F10.20 Alcohol dependence, uncomplicated; Z91.148 Patient's other noncompliance with medication regimen for other reason; E83.42 Hypomagnesemia; I42.0 Dilated cardiomyopathy
CPT/HCPCS: 36415; 80048; 80053; 80061; 80306; 83735; 84100; 84443; 85025; 85610; 85730; 93005; 93306; J1650; J3411; J3475; J7050

== ENCOUNTER 2024-09-02 13:46 | Inpatient (IN) | payer MEDICARE ==
[2024-09-02 14:16] VITALS: BMI 22.0
[2024-09-02] MEDS ORDERED: Bisacodyl 10 MG SUPP PR PRN (14:33)
[2024-09-02] MEDS ORDERED: Bisacodyl 5 MG TAB PO PRN (14:33)
[2024-09-02] MEDS ORDERED: Senokot S 8.6-50 MG TAB PO PRN (14:33)
[2024-09-02] MEDS: Furosemide 20 MG (2 mL) VIAL SLOW IVP SCH (15:00)
[2024-09-02] MEDS ORDERED: Lorazepam 1 MG TAB PO PRN (15:24)
[2024-09-02] MEDS ORDERED: Lorazepam 2 MG/ML VIAL IM PRN (15:24)
[2024-09-02] MEDS ORDERED: Electrolyte Replacement Protocol 1 EACH FS SCH (15:30)
[2024-09-02] MEDS ORDERED: dilTIAZem 125 MG in Sodium Chloride 0.9% 100 ML IVPB SCH (15:30)
[2024-09-02] MEDS: Magnesium 2 GM/50 ML(in water) 2 GM in Premix 1 BAG IVPB SCH (16:33)
[2024-09-02] MEDS: Lorazepam 1 MG TAB PO SCH (16:34)
[2024-09-02 18:23] LABS: Amphetamine Not Detected (NotDetected); Barbiturates Screen Not Detected (NotDetected); Benzodiazepine Screen Not Detected (NotDetected); Cocaine Metabolite Screen Not Detected (NotDetected); Methadone Not Detected (NotDetected); Methamphetamine Not Detected (NotDetected); Opiate Screen Not Detected (NotDetected); Oxycodone Screen Not Detected (NotDetected); Phencyclidine (PCP) Not Detected (NotDetected); THC/Cannabinoid Screen Not Detected (NotDetected); Tricyclic Screen Not Detected (NotDetected)
[2024-09-02] MEDS: Amiodarone 150 MG, Admixture Fee 1 EACH in Dextrose 5% in Water 100 ML IVPB SCH (19:49)
[2024-09-02] MEDS: Amiodarone 450 MG in Dextrose 5% in Water 250 ML IVPB SCH (19:50)
[2024-09-02] MEDS: Enoxaparin 100 MG (1 mL) SYRINGE SC SCH (20:16)
[2024-09-03 07:03] LABS: Hemoglobin A1c 5.1 % (4.0-6.0)
[2024-09-03 07:13] LABS: ALT (SGPT) 13 U/L (Less than 45); AST (SGOT) 26 U/L (11-34); Albumin 3.5 g/dL (3.1-4.5); Alkaline Phosphatase 52 U/L (40-110); Anion Gap 12 mmol/L (10-20); BUN (Urea Nitrogen) 15 mg/dL (8.4-25.7); Bilirubin, Direct 0.6 mg/dL (0.1-0.3); Bilirubin, Total 1.8 mg/dL (0.3-1.2); Calc. Creatinine Clearance 54 mL/min (70-130); Calcium 8.7 mg/dL (7.8-10.44); Carbon Dioxide 19 mmol/L (23-31); Cardiac Risk 2.6 (Less than 4.5); Chloride 108 mmol/L (98-107); Cholesterol 118 mg/dl (< 200 Desired); Estimated GFR 46; Glucose 114 mg/dL (83-110); HDL Cholesterol 46 mg/dL (>60 Neg Risk); LDL Cholesterol, Calculated 60 mg/dL; Magnesium 1.9 mg/dL (1.6-2.6); Potassium 3.8 mmol/L (3.5-5.1); Protein, Total 6.2 g/dL (5.8-8.1); Sodium 135 mmol/L (136-145); Triglycerides 59 mg/dL (Less than 150)
[2024-09-03 07:54] LABS: #Basophils 0.04 10x3/uL (0.0-0.2); %Basophils 0.5 % (0.0-1.0); %Eosinophils 0.5 % (0.0-10.0); %Lymphocytes 23.7 % (21.0-51.0); Hematocrit 38.3 % (42.0-52.0); Hemoglobin 13.5 g/dL (14.0-18.0); Mean Corpuscular HGB CONC 35.2 g/dL (32.0-36.0); Mean Corpuscular Hemoglobin 32.1 pg (27.0-31.0); Platelet Count 125 10x3/uL (130-400); Red Blood Cell (RBC) Count 4.21 mill/uL (4.70-6.10)
[2024-09-03] MEDS: Multivitamin W/ Minerals 1 TAB PO SCH (08:52)
[2024-09-03] MEDS: Thiamine 100 MG TAB PO SCH (08:52)
[2024-09-03] MEDS: Aspirin 81 mg Enteric Coated Tablet PO SCH (08:52)
[2024-09-03] MEDS: Folic Acid 1 MG TAB PO SCH (08:53)
[2024-09-03] MEDS: Cyanocobalamin (Vitamin B-12) 1,000 MCG TAB PO SCH (08:53)
[2024-09-03] MEDS: Magnesium 2 GM/50 ML(in water) 2 GM in Premix 1 BAG IVPB SCH (08:53)
[2024-09-03] MEDS ORDERED: Lorazepam 1 MG TAB PO PRN (15:24)
[2024-09-03] MEDS: DOBUTamine 500 mg/250 ml 250 ML IVPB SCH (17:53)
[2024-09-04 05:37] LABS: #Basophils 0.03 10x3/uL (0.0-0.2); %Basophils 0.5 % (0.0-1.0); %Eosinophils 1.8 % (0.0-10.0); %Lymphocytes 31.1 % (21.0-51.0); %Monocytes 14.4 % (0.0-10.0); %Neutrophils 51.9 % (42.0-75.0); Hematocrit 35.3 % (42.0-52.0); Hemoglobin 12.6 g/dL (14.0-18.0); Mean Corpuscular HGB CONC 35.7 g/dL (32.0-36.0); Mean Corpuscular Hemoglobin 32.2 pg (27.0-31.0); Mean Corpuscular Volume 90.3 fL (78.0-98.0); Platelet Count 116 10x3/uL (130-400); RBC Distribution Width 12.9 % (11.5-14.5); Red Blood Cell (RBC) Count 3.91 mill/uL (4.70-6.10)
[2024-09-04 05:54] LABS: Anion Gap 12 mmol/L (10-20); BUN (Urea Nitrogen) 12 mg/dL (8.4-25.7); Calc. Creatinine Clearance 49 mL/min (70-130); Calcium 8.2 mg/dL (7.8-10.44); Carbon Dioxide 22 mmol/L (23-31); Chloride 110 mmol/L (98-107); Estimated GFR 48; Glucose 97 mg/dL (83-110); Magnesium 1.9 mg/dL (1.6-2.6); Potassium 3.7 mmol/L (3.5-5.1); Sodium 140 mmol/L (136-145)
[2024-09-04] MEDS: Furosemide 40 MG (4 mL) VIAL SLOW IVP SCH (10:31)
[2024-09-04] MEDS: Magnesium 2 GM/50 ML(in water) 2 GM in Premix 1 BAG IVPB SCH (12:22)
[2024-09-04] MEDS: Magnesium Oxide 400 MG TAB PO SCH (13:19)
[2024-09-04] MEDS ORDERED: Lorazepam 1 MG TAB PO PRN (15:24)
[2024-09-04] MEDS: Lorazepam 0.5 MG TAB PO SCH (16:22)
[2024-09-04] MEDS: Famotidine 20 MG TAB PO SCH (20:26)
[2024-09-04] MEDS: Enoxaparin 80 MG (0.8 mL) SYRINGE SC SCH (20:26)
[2024-09-04] MEDS: Nitroglycerin 2% Ointment 1 INCH/1 GM Packet TOP SCH (23:06)
[2024-09-04] MEDS: Morphine 2 MG/ML VIAL SLOW IVP SCH (23:20)
[2024-09-04] MEDS ORDERED: Morphine 2 MG/ML VIAL SLOW IVP PRN (23:22)
[2024-09-04] MEDS: Aspirin Chewable 81 MG TAB PO SCH (23:24)
[2024-09-05 00:08] LABS: Troponin I 0.078 ng/mL (< 0.028)
[2024-09-05 05:57] LABS: #Basophils 0.03 10x3/uL (0.0-0.2); %Basophils 0.5 % (0.0-1.0); %Lymphocytes 24.2 % (21.0-51.0); %Monocytes 11.1 % (0.0-10.0); Hematocrit 36.9 % (42.0-52.0); Hemoglobin 13.1 g/dL (14.0-18.0); Mean Corpuscular HGB CONC 35.5 g/dL (32.0-36.0); Mean Corpuscular Hemoglobin 32.3 pg (27.0-31.0); Mean Corpuscular Volume 90.9 fL (78.0-98.0); Mean Platelet Volume 10.9 fL (7.4-10.4); Platelet Count 121 10x3/uL (130-400); RBC Distribution Width 13.2 % (11.5-14.5); Red Blood Cell (RBC) Count 4.06 mill/uL (4.70-6.10)
[2024-09-05 06:03] LABS: Calcium 8.6 mg/dL (7.8-10.44); Chloride 109 mmol/L (98-107); Potassium 4.2 mmol/L (3.5-5.1); Sodium 136 mmol/L (136-145)
[2024-09-05 06:04] LABS: Glucose 118 mg/dL (83-110)
[2024-09-05 06:05] LABS: Anion Gap 13 mmol/L (10-20); Carbon Dioxide 18 mmol/L (23-31)
[2024-09-05 06:07] LABS: Calc. Creatinine Clearance 66 mL/min (70-130); Estimated GFR 59
[2024-09-05 06:08] LABS: BUN (Urea Nitrogen) 11 mg/dL (8.4-25.7)
[2024-09-05 06:09] LABS: Magnesium 1.9 mg/dL (1.6-2.6)
[2024-09-05] MEDS: Magnesium 2 GM/50 ML(in water) 2 GM in Premix 1 BAG IVPB SCH (08:31)
[2024-09-05 13:41] VITALS: BMI 20.9
[2024-09-05] MEDS: Enoxaparin 100 MG (1 mL) SYRINGE SC SCH (21:05)
[2024-09-06 05:51] LABS: #Basophils 0.04 10x3/uL (0.0-0.2); %Basophils 0.5 % (0.0-1.0); %Eosinophils 0.6 % (0.0-10.0); %Lymphocytes 21.3 % (21.0-51.0); %Monocytes 12.6 % (0.0-10.0); %Neutrophils 64.7 % (42.0-75.0); Hematocrit 38.7 % (42.0-52.0); Hemoglobin 14.1 g/dL (14.0-18.0); Mean Corpuscular HGB CONC 36.4 g/dL (32.0-36.0); Mean Corpuscular Hemoglobin 32.3 pg (27.0-31.0); Mean Corpuscular Volume 88.8 fL (78.0-98.0); Mean Platelet Volume 10.8 fL (7.4-10.4); Platelet Count 144 10x3/uL (130-400); RBC Distribution Width 12.8 % (11.5-14.5); Red Blood Cell (RBC) Count 4.36 mill/uL (4.70-6.10)
[2024-09-06 06:20] LABS: Anion Gap 16 mmol/L (10-20); BUN (Urea Nitrogen) 11 mg/dL (8.4-25.7); Calc. Creatinine Clearance 54 mL/min (70-130); Calcium 8.8 mg/dL (7.8-10.44); Carbon Dioxide 18 mmol/L (23-31); Chloride 105 mmol/L (98-107); Estimated GFR 46; Glucose 127 mg/dL (83-110); Magnesium 1.8 mg/dL (1.6-2.6); Potassium 4.4 mmol/L (3.5-5.1); Sodium 135 mmol/L (136-145)
[2024-09-06 06:21] LABS: Troponin I 19.701 ng/mL (< 0.028)
[2024-09-06] MEDS: Magnesium 2 GM/50 ML(in water) 2 GM in Premix 1 BAG IVPB SCH (08:31)
[2024-09-06] MEDS: Lorazepam 0.5 MG TAB PO PRN (20:11)
[2024-09-07 04:46] LABS: Hematocrit 36.8 % (42.0-52.0); Hemoglobin 13.2 g/dL (14.0-18.0); Mean Corpuscular HGB CONC 35.9 g/dL (32.0-36.0); Mean Corpuscular Hemoglobin 32.3 pg (27.0-31.0); Mean Platelet Volume 10.6 fL (7.4-10.4); Platelet Count 147 10x3/uL (130-400); RBC Distribution Width 12.8 % (11.5-14.5); Red Blood Cell (RBC) Count 4.09 mill/uL (4.70-6.10)
[2024-09-07 05:01] LABS: Anion Gap 14 mmol/L (10-20); BUN (Urea Nitrogen) 17 mg/dL (8.4-25.7); Calc. Creatinine Clearance 53 mL/min (70-130); Calcium 8.6 mg/dL (7.8-10.44); Carbon Dioxide 20 mmol/L (23-31); Chloride 104 mmol/L (98-107); Estimated GFR 44; Glucose 98 mg/dL (83-110); Potassium 3.9 mmol/L (3.5-5.1); Sodium 134 mmol/L (136-145)
[2024-09-07 05:26] LABS: Band 2 % (5-11); Large Platelets 3.9 % (0-5); Lymphocytes 13 % (21-51); Monocytes 13 % (0-10); Neutrophil 65 % (42-75); Nucleated RBC (Manual Ct) 1 % (0); Platelet Adequacy Comment Platelets Normal; Polychromasia SLIGHT = 2-3 cells HPF (0-2); Reactive Lymphocytes 8 % (0-10); Smudge Cells 2.9 %
[2024-09-07] MEDS: Magnesium 2 GM/50 ML(in water) 2 GM in Premix 1 BAG IVPB SCH (11:14)
[2024-09-07] MEDS: Acetaminophen 325 MG TAB PO PRN (18:44)
[2024-09-07] MEDS: Ondansetron PF 4 MG/2 ML Vial IVP PRN (18:44)
[2024-09-08 09:01] VITALS: BP 93/76; TEMP 98
== END 2024-09-08 09:40 | disposition short-term general hospital (02) | DRG 280 ==
LOC: OBS 13:46 → OBSVTOIN 14:33 → OBS 09-03 18:35 → UNDODISIN 09-07 17:00
PROVIDERS: ADMIT Internal Medicine; ATTEND Internal Medicine
DX: I48.0 Paroxysmal atrial fibrillation (principal); I50.23 Acute on chronic systolic (congestive) heart failure; I21.4 Non-ST elevation (NSTEMI) myocardial infarction; R57.0 Cardiogenic shock; N17.9 Acute kidney failure, unspecified; I13.0 Hypertensive heart and chronic kidney disease with heart failure and stage 1 through stage 4 chronic kidney disease, or unspecified chronic kidney disease; E78.00 Pure hypercholesterolemia, unspecified; I47.20 Ventricular tachycardia, unspecified; N18.30 Chronic kidney disease, stage 3 unspecified; I42.0 Dilated cardiomyopathy; F10.20 Alcohol dependence, uncomplicated; Z91.148 Patient's other noncompliance with medication regimen for other reason
CPT/HCPCS: 36415; 80048; 80061; 80076; 80306; 83036; 83735; 84443; 84484; 85025; 86850; 86900; 86901; 93005; 93010; 93306; 93798; 97139; J0282; J1250; J1650; J1940; J2272; J2405; J3475; J7070

== ENCOUNTER 2025-03-09 20:56 | Inpatient (IN) | payer MEDICARE ==
[2025-03-10 02:22] LABS: CK (CPK) 123 U/L (30-200); Magnesium 2.4 mg/dL (1.6-2.6)
[2025-03-10] MEDS ORDERED: Electrolyte Replacement Protocol 1 EACH FS SCH (02:30)
[2025-03-10 03:08] VITALS: BMI 20.4
[2025-03-10 04:15] LABS: Bacteria/HPF None Seen HPF (None Seen); Glucose, Urine (Dipstick) Normal (Negative); Leukocyte Negative Leu/uL (Negative); Protein, Urine (Dipstick) Negative (Neg-Trace); RBC/HPF 0-3 HPF (0-3); Specific Gravity, Urine 1.010 (1.002-1.036); WBC/HPF 0-3 HPF (0-3)
[2025-03-10 04:31] LABS: Sodium, Urine 71.0 mmol/L (Not Available)
[2025-03-10 05:57] LABS: #Basophils 0.03 10x3/uL (0.0-0.2); #Eosinophils 0.07 10x3/uL (0.0-0.7); #Monocytes 0.52 10x3/uL (0.11-0.59); #Neutrophils 2.76 10x3/uL (1.40-6.50); %Basophils 0.6 % (0.0-1.0); %Eosinophils 1.4 % (0.0-10.0); %Lymphocytes 31.9 % (21.0-51.0); %Monocytes 10.4 % (0.0-10.0); %Neutrophils 55.5 % (42.0-75.0); Hematocrit 32.0 % (42.0-52.0); Hemoglobin 11.3 g/dL (14.0-18.0); Mean Corpuscular Hemoglobin 31.9 pg (27.0-31.0); Mean Corpuscular Volume 90.4 fL (78.0-98.0); Platelet Count 124 10x3/uL (130-400); Red Blood Cell (RBC) Count 3.54 mill/uL (4.70-6.10); White Blood Cell (WBC) Count 4.98 10x3/uL (4.8-10.8)
[2025-03-10 06:09] LABS: ALT (SGPT) 13 U/L (Less than 45); AST (SGOT) 20 U/L (11-34); Albumin 3.7 g/dL (3.1-4.5); Alkaline Phosphatase 50 U/L (40-110); Anion Gap 17 mmol/L (10-20); BUN (Urea Nitrogen) 107 mg/dL (8.4-25.7); Bilirubin, Total 0.5 mg/dL (0.3-1.2); Calc. Creatinine Clearance 10 mL/min (70-130); Calcium 8.5 mg/dL (7.8-10.44); Carbon Dioxide 20 mmol/L (23-31); Chloride 103 mmol/L (98-107); Globulin 3.1 g/dL (2.4-3.5); Glucose 92 mg/dL (83-110); Potassium 4.2 mmol/L (3.5-5.1); Sodium 136 mmol/L (136-145)
[2025-03-10] MEDS ORDERED: Lisinopril 5 MG TAB PO SCH (09:00)
[2025-03-10] MEDS: Multivit, Therapeutic 1 TAB PO SCH (09:42)
[2025-03-10] MEDS: Folic Acid 1 MG TAB PO SCH (09:42)
[2025-03-10] MEDS: Metoprolol Succinate XL 25 MG ER.TAB PO SCH (09:43)
[2025-03-10] MEDS: Amiodarone 200 MG TAB PO SCH (09:43)
[2025-03-10 15:15] LABS: Anion Gap 15 mmol/L (10-20); BUN (Urea Nitrogen) 90 mg/dL (8.4-25.7); Calc. Creatinine Clearance 13 mL/min (70-130); Calcium 8.6 mg/dL (7.8-10.44); Carbon Dioxide 22 mmol/L (23-31); Chloride 105 mmol/L (98-107); Glucose 106 mg/dL (83-110); Potassium 5.1 mmol/L (3.5-5.1); Sodium 137 mmol/L (136-145)
[2025-03-11 06:48] LABS: INR-International Normal Ratio 1.3; PTT 29.3 sec (22.9-36.1); Prothrombin Time 16.3 sec (12.0-14.7)
[2025-03-11 06:50] LABS: #Basophils 0.03 10x3/uL (0.0-0.2); #Eosinophils 0.06 10x3/uL (0.0-0.7); #Monocytes 0.75 10x3/uL (0.11-0.59); #Neutrophils 4.13 10x3/uL (1.40-6.50); %Basophils 0.5 % (0.0-1.0); %Eosinophils 0.9 % (0.0-10.0); %Lymphocytes 24.4 % (21.0-51.0); %Monocytes 11.4 % (0.0-10.0); %Neutrophils 62.6 % (42.0-75.0); Hematocrit 32.0 % (42.0-52.0); Hemoglobin 11.1 g/dL (14.0-18.0); Mean Corpuscular Hemoglobin 32.0 pg (27.0-31.0); Mean Corpuscular Volume 92.2 fL (78.0-98.0); Platelet Count 122 10x3/uL (130-400); Red Blood Cell (RBC) Count 3.47 mill/uL (4.70-6.10); White Blood Cell (WBC) Count 6.59 10x3/uL (4.8-10.8)
[2025-03-11 06:52] LABS: ALT (SGPT) 11 U/L (Less than 45); AST (SGOT) 28 U/L (11-34); Albumin 3.7 g/dL (3.1-4.5); Alkaline Phosphatase 56 U/L (40-110); Anion Gap 13 mmol/L (10-20); BUN (Urea Nitrogen) 73 mg/dL (8.4-25.7); Bilirubin, Total 0.5 mg/dL (0.3-1.2); Calc. Creatinine Clearance 20 mL/min (70-130); Calcium 8.9 mg/dL (7.8-10.44); Carbon Dioxide 26 mmol/L (23-31); Chloride 107 mmol/L (98-107); Globulin 3.5 g/dL (2.4-3.5); Glucose 104 mg/dL (83-110); Potassium 5.0 mmol/L (3.5-5.1); Sodium 141 mmol/L (136-145)
[2025-03-12 01:38] LABS: % Free PSA 47.1 % (.); Total PSA 0.7 ng/mL (0.0-4.0)
[2025-03-12 04:55] LABS: #Basophils 0.03 10x3/uL (0.0-0.2); #Eosinophils 0.07 10x3/uL (0.0-0.7); #Monocytes 0.61 10x3/uL (0.11-0.59); #Neutrophils 4.40 10x3/uL (1.40-6.50); %Basophils 0.4 % (0.0-1.0); %Eosinophils 1.0 % (0.0-10.0); %Lymphocytes 25.9 % (21.0-51.0); %Monocytes 8.8 % (0.0-10.0); %Neutrophils 63.6 % (42.0-75.0); Hematocrit 31.3 % (42.0-52.0); Hemoglobin 10.7 g/dL (14.0-18.0); Mean Corpuscular Hemoglobin 32.0 pg (27.0-31.0); Mean Corpuscular Volume 93.7 fL (78.0-98.0); Platelet Count 127 10x3/uL (130-400); Red Blood Cell (RBC) Count 3.34 mill/uL (4.70-6.10); White Blood Cell (WBC) Count 6.92 10x3/uL (4.8-10.8)
[2025-03-12 04:56] LABS: INR-International Normal Ratio 1.3; Prothrombin Time 16.0 sec (12.0-14.7)
[2025-03-12 05:03] LABS: ALT (SGPT) 12 U/L (Less than 45); AST (SGOT) 17 U/L (11-34); Albumin 3.6 g/dL (3.1-4.5); Alkaline Phosphatase 48 U/L (40-110); Anion Gap 12 mmol/L (10-20); BUN (Urea Nitrogen) 44 mg/dL (8.4-25.7); Bilirubin, Total 0.4 mg/dL (0.3-1.2); Calc. Creatinine Clearance 28 mL/min (70-130); Calcium 8.7 mg/dL (7.8-10.44); Carbon Dioxide 27 mmol/L (23-31); Chloride 106 mmol/L (98-107); Globulin 2.9 g/dL (2.4-3.5); Glucose 107 mg/dL (83-110); Potassium 4.2 mmol/L (3.5-5.1); Sodium 141 mmol/L (136-145)
[2025-03-13] MEDS: Thiamine 100 MG TAB PO SCH (00:05)
[2025-03-13 04:56] LABS: INR-International Normal Ratio 1.2; Prothrombin Time 15.4 sec (12.0-14.7)
[2025-03-13 04:57] LABS: ALT (SGPT) 13 U/L (Less than 45); AST (SGOT) 19 U/L (11-34); Albumin 3.4 g/dL (3.1-4.5); Alkaline Phosphatase 54 U/L (40-110); Anion Gap 12 mmol/L (10-20); BUN (Urea Nitrogen) 31 mg/dL (8.4-25.7); Bilirubin, Total 0.3 mg/dL (0.3-1.2); Calc. Creatinine Clearance 36 mL/min (70-130); Calcium 8.4 mg/dL (7.8-10.44); Carbon Dioxide 26 mmol/L (23-31); Chloride 106 mmol/L (98-107); Globulin 2.9 g/dL (2.4-3.5); Glucose 93 mg/dL (83-110); Potassium 4.0 mmol/L (3.5-5.1); Sodium 140 mmol/L (136-145)
[2025-03-13 05:05] LABS: #Basophils 0.03 10x3/uL (0.0-0.2); #Eosinophils 0.10 10x3/uL (0.0-0.7); #Monocytes 0.63 10x3/uL (0.11-0.59); #Neutrophils 3.72 10x3/uL (1.40-6.50); %Basophils 0.5 % (0.0-1.0); %Eosinophils 1.6 % (0.0-10.0); %Lymphocytes 28.9 % (21.0-51.0); %Monocytes 10.0 % (0.0-10.0); %Neutrophils 58.7 % (42.0-75.0); Hematocrit 29.2 % (42.0-52.0); Hemoglobin 10.0 g/dL (14.0-18.0); Mean Corpuscular Hemoglobin 31.7 pg (27.0-31.0); Mean Corpuscular Volume 92.7 fL (78.0-98.0); Platelet Count 121 10x3/uL (130-400); Red Blood Cell (RBC) Count 3.15 mill/uL (4.70-6.10); White Blood Cell (WBC) Count 6.33 10x3/uL (4.8-10.8)
[2025-03-14 04:40] LABS: #Basophils 0.04 10x3/uL (0.0-0.2); #Eosinophils 0.12 10x3/uL (0.0-0.7); #Monocytes 0.59 10x3/uL (0.11-0.59); #Neutrophils 3.51 10x3/uL (1.40-6.50); %Basophils 0.7 % (0.0-1.0); %Eosinophils 2.0 % (0.0-10.0); %Lymphocytes 28.1 % (21.0-51.0); %Monocytes 9.9 % (0.0-10.0); %Neutrophils 59.0 % (42.0-75.0); Hematocrit 28.4 % (42.0-52.0); Hemoglobin 9.6 g/dL (14.0-18.0); Mean Corpuscular Hemoglobin 31.4 pg (27.0-31.0); Mean Corpuscular Volume 92.8 fL (78.0-98.0); Platelet Count 124 10x3/uL (130-400); Red Blood Cell (RBC) Count 3.06 mill/uL (4.70-6.10); White Blood Cell (WBC) Count 5.95 10x3/uL (4.8-10.8)
[2025-03-14 04:48] LABS: INR-International Normal Ratio 1.2; Prothrombin Time 15.7 sec (12.0-14.7)
[2025-03-14 04:52] LABS: ALT (SGPT) 15 U/L (Less than 45); AST (SGOT) 19 U/L (11-34); Albumin 3.3 g/dL (3.1-4.5); Alkaline Phosphatase 57 U/L (40-110); Anion Gap 11 mmol/L (10-20); BUN (Urea Nitrogen) 33 mg/dL (8.4-25.7); Bilirubin, Total 0.2 mg/dL (0.3-1.2); Calc. Creatinine Clearance 40 mL/min (70-130); Calcium 8.3 mg/dL (7.8-10.44); Carbon Dioxide 27 mmol/L (23-31); Chloride 106 mmol/L (98-107); Globulin 2.8 g/dL (2.4-3.5); Glucose 95 mg/dL (83-110); Potassium 4.0 mmol/L (3.5-5.1); Sodium 140 mmol/L (136-145)
[2025-03-15 04:47] LABS: INR-International Normal Ratio 1.3; Prothrombin Time 16.1 sec (12.0-14.7)
[2025-03-15 05:07] LABS: Anion Gap 9 mmol/L (10-20); BUN (Urea Nitrogen) 23 mg/dL (8.4-25.7); Calc. Creatinine Clearance 47 mL/min (70-130); Calcium 8.3 mg/dL (7.8-10.44); Carbon Dioxide 26 mmol/L (23-31); Chloride 108 mmol/L (98-107); Glucose 91 mg/dL (83-110); Potassium 3.8 mmol/L (3.5-5.1); Sodium 139 mmol/L (136-145)
[2025-03-15] MEDS: Thiamine 100 MG TAB PO SCH (21:33)
[2025-03-16 04:49] LABS: Hematocrit 27.2 % (42.0-52.0); Hemoglobin 9.0 g/dL (14.0-18.0); Mean Corpuscular Hemoglobin 31.0 pg (27.0-31.0); Mean Corpuscular Volume 93.8 fL (78.0-98.0); Platelet Count 140 10x3/uL (130-400); Red Blood Cell (RBC) Count 2.90 mill/uL (4.70-6.10); White Blood Cell (WBC) Count 6.29 10x3/uL (4.8-10.8)
[2025-03-16 04:51] LABS: INR-International Normal Ratio 1.4; Prothrombin Time 17.1 sec (12.0-14.7)
[2025-03-16 04:53] LABS: Anion Gap 10 mmol/L (10-20); BUN (Urea Nitrogen) 20 mg/dL (8.4-25.7); Calc. Creatinine Clearance 51 mL/min (70-130); Calcium 8.0 mg/dL (7.8-10.44); Carbon Dioxide 25 mmol/L (23-31); Chloride 108 mmol/L (98-107); Glucose 91 mg/dL (83-110); Potassium 4.0 mmol/L (3.5-5.1); Sodium 139 mmol/L (136-145)
[2025-03-16] MEDS ORDERED: Enoxaparin 40 MG (0.4 mL) SYRINGE SC SCH (09:00)
[2025-03-16] MEDS: Enoxaparin 100 MG (1 mL) SYRINGE SC SCH (09:21)
[2025-03-17 04:57] LABS: Anion Gap 10 mmol/L (10-20); BUN (Urea Nitrogen) 20 mg/dL (8.4-25.7); Calc. Creatinine Clearance 51 mL/min (70-130); Calcium 8.0 mg/dL (7.8-10.44); Carbon Dioxide 24 mmol/L (23-31); Chloride 110 mmol/L (98-107); Glucose 95 mg/dL (83-110); Potassium 3.8 mmol/L (3.5-5.1); Sodium 140 mmol/L (136-145)
[2025-03-17 05:04] LABS: INR-International Normal Ratio 1.5; Prothrombin Time 18.4 sec (12.0-14.7)
[2025-03-18 06:36] LABS: Hematocrit 27.9 % (42.0-52.0); Hemoglobin 9.3 g/dL (14.0-18.0); Mean Corpuscular Hemoglobin 31.2 pg (27.0-31.0); Mean Corpuscular Volume 93.6 fL (78.0-98.0); Platelet Count 147 10x3/uL (130-400); Red Blood Cell (RBC) Count 2.98 mill/uL (4.70-6.10); White Blood Cell (WBC) Count 6.27 10x3/uL (4.8-10.8)
[2025-03-18 06:50] LABS: Anion Gap 12 mmol/L (10-20); BUN (Urea Nitrogen) 17 mg/dL (8.4-25.7); Calc. Creatinine Clearance 53 mL/min (70-130); Calcium 8.1 mg/dL (7.8-10.44); Carbon Dioxide 25 mmol/L (23-31); Chloride 111 mmol/L (98-107); Glucose 90 mg/dL (83-110); Potassium 3.9 mmol/L (3.5-5.1); Sodium 144 mmol/L (136-145)
[2025-03-18 06:55] LABS: INR-International Normal Ratio 1.5; Prothrombin Time 18.3 sec (12.0-14.7)
[2025-03-19 05:26] LABS: INR-International Normal Ratio 1.7; Prothrombin Time 20.2 sec (12.0-14.7)
[2025-03-19 05:30] LABS: Anion Gap 10 mmol/L (10-20); BUN (Urea Nitrogen) 14 mg/dL (8.4-25.7); Calc. Creatinine Clearance 58 mL/min (70-130); Calcium 7.7 mg/dL (7.8-10.44); Carbon Dioxide 25 mmol/L (23-31); Chloride 110 mmol/L (98-107); Glucose 86 mg/dL (83-110); Potassium 3.7 mmol/L (3.5-5.1); Sodium 141 mmol/L (136-145)
[2025-03-20 05:59] LABS: Hematocrit 27.2 % (42.0-52.0); Hemoglobin 9.2 g/dL (14.0-18.0); Mean Corpuscular Hemoglobin 31.6 pg (27.0-31.0); Mean Corpuscular Volume 93.5 fL (78.0-98.0); Platelet Count 143 10x3/uL (130-400); Red Blood Cell (RBC) Count 2.91 mill/uL (4.70-6.10); White Blood Cell (WBC) Count 6.75 10x3/uL (4.8-10.8)
[2025-03-20 06:14] LABS: INR-International Normal Ratio 2.1; Prothrombin Time 23.8 sec (12.0-14.7)
[2025-03-20 06:16] LABS: Anion Gap 10 mmol/L (10-20); BUN (Urea Nitrogen) 18 mg/dL (8.4-25.7); Calc. Creatinine Clearance 60 mL/min (70-130); Calcium 8.0 mg/dL (7.8-10.44); Carbon Dioxide 25 mmol/L (23-31); Chloride 111 mmol/L (98-107); Glucose 85 mg/dL (83-110); Potassium 3.8 mmol/L (3.5-5.1); Sodium 142 mmol/L (136-145)
[2025-03-20 17:17] VITALS: BP 154/80; TEMP 98.1
== END 2025-03-20 17:35 | disposition home or self-care (01) | DRG 683 ==
LOC: 2NO 03-10 00:39 → MSONC 03-15 16:25
PROVIDERS: ADMIT Family Medicine; ATTEND Family Medicine
DX: N17.9 Acute kidney failure, unspecified (principal); I13.0 Hypertensive heart and chronic kidney disease with heart failure and stage 1 through stage 4 chronic kidney disease, or unspecified chronic kidney disease; I42.0 Dilated cardiomyopathy; N13.8 Other obstructive and reflux uropathy; I50.22 Chronic systolic (congestive) heart failure; D63.1 Anemia in chronic kidney disease; I48.91 Unspecified atrial fibrillation; N40.1 Benign prostatic hyperplasia with lower urinary tract symptoms; E78.5 Hyperlipidemia, unspecified; N18.32 Chronic kidney disease, stage 3b; I25.10 Atherosclerotic heart disease of native coronary artery without angina pectoris; N20.0 Calculus of kidney; I44.30 Unspecified atrioventricular block; I34.0 Nonrheumatic mitral (valve) insufficiency; Z95.818 Presence of other cardiac implants and grafts; Z87.891 Personal history of nicotine dependence; Z79.899 Other long term (current) drug therapy; Z79.01 Long term (current) use of anticoagulants
CPT/HCPCS: 36415; 36416; 74176; 76770; 80048; 80053; 81001; 82550; 82570; 83605; 83735; 83880; 84100; 84153; 84154; 84300; 85025; 85027; 85610; 85730; 93306; J1650; J3411; J7120

== ENCOUNTER 2025-03-24 22:50 | Inpatient (IN) | payer MEDICARE ==
[2025-03-25] MEDS ORDERED: Acetaminophen 325 MG TAB PO PRN (01:59)
[2025-03-25 05:26] LABS: #Basophils 0.03 10x3/uL (0.0-0.2); #Eosinophils Less than 0.03 10x3/uL (0.0-0.7); #Monocytes 0.84 10x3/uL (0.11-0.59); #Neutrophils 9.79 10x3/uL (1.40-6.50); %Basophils 0.3 % (0.0-1.0); %Eosinophils 0.1 % (0.0-10.0); %Lymphocytes 6.8 % (21.0-51.0); %Monocytes 7.3 % (0.0-10.0); %Neutrophils 85.0 % (42.0-75.0); Hematocrit 29.4 % (42.0-52.0); Hemoglobin 10.1 g/dL (14.0-18.0); Mean Corpuscular Hemoglobin 31.5 pg (27.0-31.0); Mean Corpuscular Volume 91.6 fL (78.0-98.0); Platelet Count 159 10x3/uL (130-400); Red Blood Cell (RBC) Count 3.21 mill/uL (4.70-6.10); White Blood Cell (WBC) Count 11.51 10x3/uL (4.8-10.8)
[2025-03-25 05:46] LABS: ALT (SGPT) 22 U/L (Less than 45); AST (SGOT) 23 U/L (11-34); Albumin 3.1 g/dL (3.1-4.5); Alkaline Phosphatase 55 U/L (40-110); Anion Gap 13 mmol/L (10-20); BUN (Urea Nitrogen) 48 mg/dL (8.4-25.7); Bilirubin, Total 0.6 mg/dL (0.3-1.2); Calc. Creatinine Clearance 28 mL/min (70-130); Calcium 7.9 mg/dL (7.8-10.44); Carbon Dioxide 23 mmol/L (23-31); Chloride 105 mmol/L (98-107); Globulin 3.3 g/dL (2.4-3.5); Glucose 126 mg/dL (83-110); Potassium 4.1 mmol/L (3.5-5.1); Sodium 137 mmol/L (136-145)
[2025-03-25] MEDS ORDERED: Preparation H Ointment 57 gram tube TOP PRN (06:05)
[2025-03-25] MEDS ORDERED: Preparation H Ointment 28 GM TUBE TOP PRN (06:15)
[2025-03-25] MEDS: cefTRIAXone\\ROCEPHIN 1 GM in Sodium Chloride 0.9% 100 ML IVPB SCH (06:23)
[2025-03-25 07:23] LABS: Magnesium 1.9 mg/dL (1.6-2.6)
[2025-03-25 07:31] LABS: Urea Nitrogen, Random Urine Less than 40 mg/dl
[2025-03-25 08:02] LABS: INR-International Normal Ratio 3.5; Prothrombin Time 35.7 sec (12.0-14.7)
[2025-03-25] MEDS: Multivit, Therapeutic 1 TAB PO SCH (09:05)
[2025-03-25] MEDS: pyridOXINE 50 MG (B6) TAB PO SCH (09:05)
[2025-03-25] MEDS: Folic Acid 1 MG TAB PO SCH (09:05)
[2025-03-25] MEDS: Thiamine 100 MG TAB PO SCH (09:05)
[2025-03-25] MEDS: Amiodarone 200 MG TAB PO SCH (09:05)
[2025-03-25] MEDS: Albumin 25% 25 GM (100 mL) BOT IVPB SCH (15:30)
[2025-03-26 05:18] LABS: ALT (SGPT) 20 U/L (Less than 45); AST (SGOT) 24 U/L (11-34); Albumin 3.2 g/dL (3.1-4.5); Alkaline Phosphatase 50 U/L (40-110); Anion Gap 12 mmol/L (10-20); BUN (Urea Nitrogen) 28 mg/dL (8.4-25.7); BUN/Creatinine Ratio 14.81; Bilirubin, Total 0.6 mg/dL (0.3-1.2); Calc. Creatinine Clearance 45 mL/min (70-130); Calcium 8.3 mg/dL (7.8-10.44); Carbon Dioxide 23 mmol/L (23-31); Chloride 109 mmol/L (98-107); Globulin 3.1 g/dL (2.4-3.5); Glucose 101 mg/dL (83-110); Magnesium 1.9 mg/dL (1.6-2.6); Potassium 3.9 mmol/L (3.5-5.1); Sodium 140 mmol/L (136-145)
[2025-03-26 05:51] LABS: INR-International Normal Ratio 3.2; Prothrombin Time 33.2 sec (12.0-14.7)
[2025-03-26 06:31] LABS: #Basophils 0.04 10x3/uL (0.0-0.2); #Eosinophils 0.14 10x3/uL (0.0-0.7); #Monocytes 1.36 10x3/uL (0.11-0.59); #Neutrophils 8.75 10x3/uL (1.40-6.50); %Basophils 0.4 % (0.0-1.0); %Eosinophils 1.2 % (0.0-10.0); %Lymphocytes 8.8 % (21.0-51.0); %Monocytes 12.0 % (0.0-10.0); %Neutrophils 77.0 % (42.0-75.0); Hematocrit 25.9 % (42.0-52.0); Hemoglobin 8.8 g/dL (14.0-18.0); Mean Corpuscular Hemoglobin 31.1 pg (27.0-31.0); Mean Corpuscular Volume 91.5 fL (78.0-98.0); Platelet Count 149 10x3/uL (130-400); Red Blood Cell (RBC) Count 2.83 mill/uL (4.70-6.10); White Blood Cell (WBC) Count 11.36 10x3/uL (4.8-10.8)
[2025-03-26 08:29] LABS: Iron 13 ug/dL (65-175); Iron Binding Capacity, Total 133 mcg/dL (261-462)
[2025-03-26] MEDS: Ergocalciferol 1.25 MG(50,000 UNITS) CAP PO SCH (09:51)
[2025-03-27 04:25] LABS: INR-International Normal Ratio 2.8; Prothrombin Time 29.3 sec (12.0-14.7)
[2025-03-27 04:37] LABS: ALT (SGPT) 43 U/L (Less than 45); AST (SGOT) 52 U/L (11-34); Albumin 3.0 g/dL (3.1-4.5); Alkaline Phosphatase 61 U/L (40-110); Anion Gap 13 mmol/L (10-20); BUN (Urea Nitrogen) 21 mg/dL (8.4-25.7); Bilirubin, Total 0.2 mg/dL (0.3-1.2); Calc. Creatinine Clearance 51 mL/min (70-130); Calcium 8.4 mg/dL (7.8-10.44); Carbon Dioxide 24 mmol/L (23-31); Chloride 108 mmol/L (98-107); Globulin 3.3 g/dL (2.4-3.5); Glucose 100 mg/dL (83-110); Potassium 4.1 mmol/L (3.5-5.1); Sodium 141 mmol/L (136-145)
[2025-03-27 08:51] LABS: Campy jejuni + coli by PCR Negative (Negative); STEC Shiga Toxin 1+2 Negative (Negative); Salmonella spp. by PCR Negative (Negative); Shigella spp + EIEC by PCR Negative (Negative)
[2025-03-27] MEDS: cefTRIAXone\\ROCEPHIN 2 GM in Sodium Chloride 0.9% 100 ML IVPB SCH (09:51)
[2025-03-27] MEDS: Sodium Ferric Gluconate 250 MG in Sodium Chloride 0.9% 250 ML 250 ML IVPB SCH (12:59)
[2025-03-27 14:29] LABS: #Basophils Less than 0.03 10x3/uL (0.0-0.2); #Eosinophils 0.11 10x3/uL (0.0-0.7); #Monocytes 0.63 10x3/uL (0.11-0.59); #Neutrophils 3.94 10x3/uL (1.40-6.50); %Basophils 0.4 % (0.0-1.0); %Eosinophils 1.9 % (0.0-10.0); %Lymphocytes 17.3 % (21.0-51.0); %Monocytes 11.0 % (0.0-10.0); %Neutrophils 69.0 % (42.0-75.0); Hematocrit 28.7 % (42.0-52.0); Hemoglobin 9.5 g/dL (14.0-18.0); Mean Corpuscular Hemoglobin 30.9 pg (27.0-31.0); Mean Corpuscular Volume 93.5 fL (78.0-98.0); Platelet Count 168 10x3/uL (130-400); Red Blood Cell (RBC) Count 3.07 mill/uL (4.70-6.10); White Blood Cell (WBC) Count 5.71 10x3/uL (4.8-10.8)
[2025-03-28 03:50] VITALS: BMI 21.5
[2025-03-28 05:21] LABS: #Basophils 0.03 10x3/uL (0.0-0.2); #Eosinophils 0.13 10x3/uL (0.0-0.7); #Monocytes 0.86 10x3/uL (0.11-0.59); #Neutrophils 3.69 10x3/uL (1.40-6.50); %Basophils 0.5 % (0.0-1.0); %Eosinophils 2.2 % (0.0-10.0); %Lymphocytes 18.9 % (21.0-51.0); %Monocytes 14.7 % (0.0-10.0); %Neutrophils 63.0 % (42.0-75.0); Hematocrit 26.7 % (42.0-52.0); Hemoglobin 8.8 g/dL (14.0-18.0); Mean Corpuscular Hemoglobin 31.1 pg (27.0-31.0); Mean Corpuscular Volume 94.3 fL (78.0-98.0); Platelet Count 181 10x3/uL (130-400); Red Blood Cell (RBC) Count 2.83 mill/uL (4.70-6.10); White Blood Cell (WBC) Count 5.86 10x3/uL (4.8-10.8)
[2025-03-28 05:33] LABS: INR-International Normal Ratio 2.7; Prothrombin Time 28.9 sec (12.0-14.7)
[2025-03-28 05:36] LABS: ALT (SGPT) 68 U/L (Less than 45); AST (SGOT) 73 U/L (11-34); Albumin 2.9 g/dL (3.1-4.5); Alkaline Phosphatase 62 U/L (40-110); Anion Gap 13 mmol/L (10-20); BUN (Urea Nitrogen) 21 mg/dL (8.4-25.7); Bilirubin, Total 0.1 mg/dL (0.3-1.2); Calc. Creatinine Clearance 56 mL/min (70-130); Calcium 8.3 mg/dL (7.8-10.44); Carbon Dioxide 24 mmol/L (23-31); Chloride 109 mmol/L (98-107); Globulin 3.3 g/dL (2.4-3.5); Glucose 98 mg/dL (83-110); Potassium 4.1 mmol/L (3.5-5.1); Sodium 142 mmol/L (136-145)
[2025-03-28] MEDS ORDERED: Metoprolol Succinate XL 25 MG ER.TAB PO SCH (09:00)
[2025-03-28] MEDS: EPOETIN ALFA-EPBX (ESRD) 10,000 UNITS/ML VIAL SC SCH (10:47)
[2025-03-28] MEDS: PNEUMOC 20-VAL CONJ-DIP CRM/PF 0.5 ML SYRINGE IM ONE (10:47)
[2025-03-28] MEDS: Thiamine 100 MG TAB PO SCH (10:48)
[2025-03-29 04:53] LABS: #Basophils 0.05 10x3/uL (0.0-0.2); #Eosinophils 0.14 10x3/uL (0.0-0.7); #Monocytes 0.93 10x3/uL (0.11-0.59); #Neutrophils 4.76 10x3/uL (1.40-6.50); %Basophils 0.6 % (0.0-1.0); %Eosinophils 1.8 % (0.0-10.0); %Lymphocytes 25.1 % (21.0-51.0); %Monocytes 11.7 % (0.0-10.0); %Neutrophils 59.7 % (42.0-75.0); Hematocrit 29.2 % (42.0-52.0); Hemoglobin 9.9 g/dL (14.0-18.0); Mean Corpuscular Hemoglobin 31.5 pg (27.0-31.0); Mean Corpuscular Volume 93.0 fL (78.0-98.0); Platelet Count 207 10x3/uL (130-400); Red Blood Cell (RBC) Count 3.14 mill/uL (4.70-6.10); White Blood Cell (WBC) Count 7.97 10x3/uL (4.8-10.8)
[2025-03-29 05:04] LABS: INR-International Normal Ratio 2.4; Prothrombin Time 26.2 sec (12.0-14.7)
[2025-03-29 05:44] LABS: ALT (SGPT) 65 U/L (Less than 45); AST (SGOT) 64 U/L (11-34); Albumin 3.2 g/dL (3.1-4.5); Alkaline Phosphatase 68 U/L (40-110); Anion Gap 14 mmol/L (10-20); BUN (Urea Nitrogen) 15 mg/dL (8.4-25.7); Bilirubin, Total 0.2 mg/dL (0.3-1.2); Calc. Creatinine Clearance 57 mL/min (70-130); Calcium 8.7 mg/dL (7.8-10.44); Carbon Dioxide 23 mmol/L (23-31); Chloride 109 mmol/L (98-107); Globulin 3.6 g/dL (2.4-3.5); Glucose 96 mg/dL (83-110); Magnesium 1.8 mg/dL (1.6-2.6); Potassium 4.1 mmol/L (3.5-5.1); Sodium 142 mmol/L (136-145)
[2025-03-29] MEDS: Furosemide 20 MG TAB PO SCH (12:52)
[2025-03-30 04:40] LABS: #Basophils 0.04 10x3/uL (0.0-0.2); #Eosinophils 0.11 10x3/uL (0.0-0.7); #Monocytes 0.83 10x3/uL (0.11-0.59); #Neutrophils 4.78 10x3/uL (1.40-6.50); %Basophils 0.5 % (0.0-1.0); %Eosinophils 1.4 % (0.0-10.0); %Lymphocytes 22.9 % (21.0-51.0); %Monocytes 10.9 % (0.0-10.0); %Neutrophils 62.9 % (42.0-75.0); Hematocrit 27.9 % (42.0-52.0); Hemoglobin 9.1 g/dL (14.0-18.0); Mean Corpuscular Hemoglobin 30.5 pg (27.0-31.0); Mean Corpuscular Volume 93.6 fL (78.0-98.0); Platelet Count 218 10x3/uL (130-400); Red Blood Cell (RBC) Count 2.98 mill/uL (4.70-6.10); White Blood Cell (WBC) Count 7.61 10x3/uL (4.8-10.8)
[2025-03-30 05:02] LABS: INR-International Normal Ratio 2.5; Prothrombin Time 27.1 sec (12.0-14.7)
[2025-03-30 05:04] LABS: ALT (SGPT) 50 U/L (Less than 45); AST (SGOT) 35 U/L (11-34); Albumin 2.9 g/dL (3.1-4.5); Alkaline Phosphatase 65 U/L (40-110); Anion Gap 12 mmol/L (10-20); BUN (Urea Nitrogen) 17 mg/dL (8.4-25.7); Bilirubin, Total 0.2 mg/dL (0.3-1.2); Calc. Creatinine Clearance 55 mL/min (70-130); Calcium 8.6 mg/dL (7.8-10.44); Carbon Dioxide 27 mmol/L (23-31); Chloride 108 mmol/L (98-107); Globulin 3.2 g/dL (2.4-3.5); Glucose 92 mg/dL (83-110); Potassium 3.9 mmol/L (3.5-5.1); Sodium 143 mmol/L (136-145)
[2025-03-30] MEDS ORDERED: Furosemide 20 MG TAB PO SCH (09:00)
[2025-03-31 04:34] LABS: #Basophils 0.04 10x3/uL (0.0-0.2); #Eosinophils 0.10 10x3/uL (0.0-0.7); #Monocytes 0.97 10x3/uL (0.11-0.59); #Neutrophils 5.36 10x3/uL (1.40-6.50); %Basophils 0.5 % (0.0-1.0); %Eosinophils 1.2 % (0.0-10.0); %Lymphocytes 20.2 % (21.0-51.0); %Monocytes 11.7 % (0.0-10.0); %Neutrophils 64.8 % (42.0-75.0); Hematocrit 28.4 % (42.0-52.0); Hemoglobin 9.5 g/dL (14.0-18.0); Mean Corpuscular Hemoglobin 31.4 pg (27.0-31.0); Mean Corpuscular Volume 93.7 fL (78.0-98.0); Platelet Count 245 10x3/uL (130-400); Red Blood Cell (RBC) Count 3.03 mill/uL (4.70-6.10); White Blood Cell (WBC) Count 8.27 10x3/uL (4.8-10.8)
[2025-03-31 04:49] LABS: INR-International Normal Ratio 2.4; Prothrombin Time 26.2 sec (12.0-14.7)
[2025-03-31 05:04] LABS: ALT (SGPT) 47 U/L (Less than 45); AST (SGOT) 36 U/L (11-34); Albumin 2.9 g/dL (3.1-4.5); Alkaline Phosphatase 67 U/L (40-110); Anion Gap 13 mmol/L (10-20); BUN (Urea Nitrogen) 16 mg/dL (8.4-25.7); Bilirubin, Total 0.2 mg/dL (0.3-1.2); Calc. Creatinine Clearance 56 mL/min (70-130); Calcium 8.6 mg/dL (7.8-10.44); Carbon Dioxide 29 mmol/L (23-31); Chloride 106 mmol/L (98-107); Globulin 3.4 g/dL (2.4-3.5); Glucose 92 mg/dL (83-110); Potassium 3.8 mmol/L (3.5-5.1); Sodium 144 mmol/L (136-145)
[2025-03-31] MEDS: Dapagliflozin Propanediol 10 MG TAB PO SCH (08:54)
[2025-04-01 05:47] LABS: #Basophils 0.04 10x3/uL (0.0-0.2); #Eosinophils 0.11 10x3/uL (0.0-0.7); #Monocytes 0.78 10x3/uL (0.11-0.59); #Neutrophils 3.75 10x3/uL (1.40-6.50); %Basophils 0.6 % (0.0-1.0); %Eosinophils 1.7 % (0.0-10.0); %Lymphocytes 26.7 % (21.0-51.0); %Monocytes 12.0 % (0.0-10.0); %Neutrophils 57.5 % (42.0-75.0); Hematocrit 27.2 % (42.0-52.0); Hemoglobin 9.2 g/dL (14.0-18.0); Mean Corpuscular Hemoglobin 31.4 pg (27.0-31.0); Mean Corpuscular Volume 92.8 fL (78.0-98.0); Platelet Count 259 10x3/uL (130-400); Red Blood Cell (RBC) Count 2.93 mill/uL (4.70-6.10); White Blood Cell (WBC) Count 6.52 10x3/uL (4.8-10.8)
[2025-04-01 06:06] LABS: INR-International Normal Ratio 2.3; Prothrombin Time 25.1 sec (12.0-14.7)
[2025-04-01 06:31] LABS: ALT (SGPT) 51 U/L (Less than 45); AST (SGOT) 39 U/L (11-34); Albumin 3.0 g/dL (3.1-4.5); Alkaline Phosphatase 66 U/L (40-110); Anion Gap 12 mmol/L (10-20); BUN (Urea Nitrogen) 16 mg/dL (8.4-25.7); Bilirubin, Total 0.2 mg/dL (0.3-1.2); Calc. Creatinine Clearance 58 mL/min (70-130); Calcium 8.7 mg/dL (7.8-10.44); Carbon Dioxide 27 mmol/L (23-31); Chloride 109 mmol/L (98-107); Globulin 3.1 g/dL (2.4-3.5); Glucose 87 mg/dL (83-110); Potassium 3.9 mmol/L (3.5-5.1); Sodium 144 mmol/L (136-145)
[2025-04-01 21:05] VITALS: BMI 21.6
[2025-04-02 04:51] LABS: #Basophils 0.03 10x3/uL (0.0-0.2); #Eosinophils 0.11 10x3/uL (0.0-0.7); #Monocytes 0.85 10x3/uL (0.11-0.59); #Neutrophils 3.58 10x3/uL (1.40-6.50); %Basophils 0.5 % (0.0-1.0); %Eosinophils 1.7 % (0.0-10.0); %Lymphocytes 27.1 % (21.0-51.0); %Monocytes 13.3 % (0.0-10.0); %Neutrophils 55.8 % (42.0-75.0); Hematocrit 28.0 % (42.0-52.0); Hemoglobin 9.4 g/dL (14.0-18.0); Mean Corpuscular Hemoglobin 31.2 pg (27.0-31.0); Mean Corpuscular Volume 93.0 fL (78.0-98.0); Platelet Count 277 10x3/uL (130-400); Red Blood Cell (RBC) Count 3.01 mill/uL (4.70-6.10); White Blood Cell (WBC) Count 6.41 10x3/uL (4.8-10.8)
[2025-04-02 05:32] LABS: INR-International Normal Ratio 2.2; Prothrombin Time 24.7 sec (12.0-14.7)
[2025-04-02 05:37] LABS: ALT (SGPT) 55 U/L (Less than 45); AST (SGOT) 54 U/L (11-34); Albumin 3.1 g/dL (3.1-4.5); Alkaline Phosphatase 68 U/L (40-110); Anion Gap 13 mmol/L (10-20); BUN (Urea Nitrogen) 20 mg/dL (8.4-25.7); Bilirubin, Total 0.2 mg/dL (0.3-1.2); Calc. Creatinine Clearance 54 mL/min (70-130); Calcium 8.9 mg/dL (7.8-10.44); Carbon Dioxide 25 mmol/L (23-31); Chloride 108 mmol/L (98-107); Globulin 3.1 g/dL (2.4-3.5); Glucose 91 mg/dL (83-110); Potassium 4.1 mmol/L (3.5-5.1); Sodium 142 mmol/L (136-145)
[2025-04-02 15:26] VITALS: BP 155/86; TEMP 97.8
== END 2025-04-02 17:15 | disposition home or self-care (01) | DRG 699 ==
LOC: 2NO 03-25 01:32 → OBSVTOIN 03-25 01:59
PROVIDERS: ADMIT Student in an Organized Health Care Education/Training Program; ATTEND Student in an Organized Health Care Education/Training Program
DX: T83.511A Infection and inflammatory reaction due to indwelling urethral catheter, initial encounter (principal); I13.0 Hypertensive heart and chronic kidney disease with heart failure and stage 1 through stage 4 chronic kidney disease, or unspecified chronic kidney disease; I50.32 Chronic diastolic (congestive) heart failure; N17.9 Acute kidney failure, unspecified; I42.0 Dilated cardiomyopathy; R78.81 Bacteremia; N39.0 Urinary tract infection, site not specified; I48.0 Paroxysmal atrial fibrillation; F10.10 Alcohol abuse, uncomplicated; D63.1 Anemia in chronic kidney disease; I25.10 Atherosclerotic heart disease of native coronary artery without angina pectoris; I44.0 Atrioventricular block, first degree; N18.32 Chronic kidney disease, stage 3b; R74.01 Elevation of levels of liver transaminase levels; N40.1 Benign prostatic hyperplasia with lower urinary tract symptoms; R33.9 Retention of urine, unspecified; N32.0 Bladder-neck obstruction; K64.4 Residual hemorrhoidal skin tags; Z79.899 Other long term (current) drug therapy; Z79.01 Long term (current) use of anticoagulants; B96.89 Other specified bacterial agents as the cause of diseases classified elsewhere; Z68.21 Body mass index [BMI] 21.0-21.9, adult
CPT/HCPCS: 36415; 80053; 80069; 82306; 82550; 82570; 82728; 83540; 83550; 83735; 84100; 84540; 85025; 85610; 87324; 87328; 87329; 87449; 87505; 90471; 90677; A4217; G0009; J0692; J0696; J2185; J2916; J7050; J7120; P9047; Q5105